=== PATIENT | female | born 1980 | race Caucasian/White ===

== ENCOUNTER 2018-12-18 15:50 | Inpatient (IN) | payer MEDICAID ==
[2018-12-18] MEDS ORDERED: Sodium Chloride 0.9% 1,000 ML IV ONE (16:14)
[2018-12-18 16:34] LABS: % EOSINOPHILS 1.5 % (0.0-5.0); % LYMPHOCYTES 7.8 % (20.0-50.0); % MONOCYTES 8.8 % (2.0-10.0); % NEUTROPHILS 81.9 % (40.0-80.0); EOSINOPHILE ABSOLUTE 0.2 Th/cmm (0.1-0.4); HEMATOCRIT 35.4 % (41.0-60); HEMOGLOBIN 11.8 gm/dL (12-16); LYMPHOCYTE ABSOLUTE 1.1 Th/cmm (1.5-3.0); MEAN CELL VOLUME 91.1 fl (81-100); MEAN CORPUSCULAR HEMOGLOBIN 30.2 pg (27.0-31.0); MEAN CORPUSCULAR HGB CONC 33.2 pg (28.0-36.0); MONOCYTE ABSOLUTE 1.2 Th/cmm (0.3-1.0); NEUTROPHILE ABSOLUTE 11.1 Th/cmm (1.8-8.0); PLATELET COUNT 396 Th/cmm (150-400); RED BLOOD COUNT 3.89 Mil/cmm (3.80-5.10); RED CELL DISTRIBUTION WIDTH 12.4 % (11.5-20.0); WHITE BLOOD COUNT 13.6 Th/cmm (4.8-10.8)
[2018-12-18 16:53] LABS: ALB/GLOB RATIO 1.3 (1.0-1.8); ALBUMIN 3.5 gm/dL (3.7-5.3); ALKALINE PHOSPHATASE 101 U/L (34-104); AMYLASE SERUM 39 U/L (29-103); BILIRUBIN,TOTAL 0.3 mg/dL (0.3-1.0); BUN - UREA NITROGEN 13 mg/dL (7-25); CALCIUM SERUM 8.6 mg/dL (8.6-10.3); CARBON DIOXIDE 23.8 mEq/L (21.0-31.0); CHLORIDE 103 mEq/L (98-107); CHOLESTEROL 101 mg/dL (<200); CREATININE - SERUM 0.7 mg/dL (0.6-1.2); CREATININE KINASE 22 U/L (30-223); GFR AFRICAN-AMERICAN > 60.0 ml/min (>90); GFR NON AFRICAN-AMERICAN > 60.0 ml/min; GLUCOSE 125 mg/dL (70-105); HDL -HIGH DENSITY LIPOPROTEIN 38 mg/dL (23-92); INR 1.05 (0.5-1.4); LIPASE 11 U/L (11-82); POTASSIUM SERUM 3.8 mEq/L (3.5-5.1); PROTHROMBIN TIME (TEST) 10.9 SECONDS (9.5-11.5); SGOT 24 U/L (13-39); SGPT/ALT 23 U/L (7-52); SODIUM SERUM 135 mEq/L (136-145); TOTAL PROTEIN,SERUM 6.2 gm/dL (6.0-8.3); TRIGLYCERIDES 82 mg/dL (<150)
[2018-12-18 17:07] LABS: URINE SOURCE CLEAN C
[2018-12-18 17:13] LABS: URINE BILIRUBIN NEGATIVE (NEGATIVE); URINE BLOOD MODERATE (NEGATIVE); URINE GLUCOSE (UA) NEGATIVE (NEGATIVE); URINE KETONE NEGATIVE (NEGATIVE); URINE LEUKOCYTE ESTERASE TRACE (NEGATIVE); URINE MICROSCOPIC INDICATED? YES; URINE NITRATE NEGATIVE (NEGATIVE); URINE PH 6.5 (4.6 - 8.0); URINE PROTEIN NEGATIVE (NEGATIVE); URINE UROBILINOGEN 0.2 E.U./dL (0.2 - 1.0)
[2018-12-18 17:17] LABS: URINE CLARITY HAZY (CLEAR); URINE COLOR YELLOW
[2018-12-18 17:22] LABS: URINE BACTERIA FEW /hpf (NONE SEEN); URINE EPITHELIAL CELLS MODERATE /lpf (FEW); URINE WBC 0-2 /hpf (0-5)
[2018-12-18] MEDS ORDERED: cefTRIAXone 1 GM in Sodium Chloride 0.9% 50 ML IV ONE (19:05)
--- NOTE | 2018-12-18 19:06 | ED Physician Chart ---
ED Chief Complaint/HPI - Patient Information Date Seen:: 12/18/18 Time Seen:: 16:30 Chief Complaint:: Abdominal Pain History of Present Illness:: onset x 2 days of intermittent, diffuse, crampy Abdominal Pain and fever; pt denies trauma, H/As, S/T, neck pain, cough, C/P, SOB, A/N/V/D/C, chills, or urinary s/s Allergies:: Allergies Allergy/AdvReac Type Severity Reaction Status Date / Time No Known Drug Allergies Allergy Verified 12/18/18 16:19 Vitals:: Vital Signs - 8 hr 12/18/18 16:25 Temp 100.0 F HR 112 RR 21 BP 107/68 O2 Sat % 98 Historian:: Patient, Family Member Review:: Nurse's Note Reviewed, Old Chart Reviewed <Arsen Schreiber - Last Filed: 12/18/18 19:06> - Patient Information Allergies:: Allergies Allergy/AdvReac Type Severity Reaction Status Date / Time No Known Drug Allergies Allergy Verified 12/18/18 16:19 Vitals:: Vital Signs - 8 hr 12/18/18 16:25 Temp 100.0 F HR 112 RR 21 BP 107/68 O2 Sat % 98 <Adan Quiroz - Last Filed: 12/19/18 10:22> ED Review of Systems - Review of Systems General/Constitutional: No fever, No chills, No weight loss, No weakness, No diaphoresis, No edema, No loss of appetite Skin: No skin lesions, No rash, No bruising Head: No headache, No light-headedness Eyes: No loss of vision, No pain, No diplopia ENT: No earache, No nasal drainage, No sore throat, No tinnitus Neck: No neck pain, No swelling, No thyromegaly, No stiffness, No mass noted Cardio Vascular: No chest pain, No palpitations, No PND, No orthopnea, No edema Pulmonary: No SOB, No cough, No sputum, No wheezing GI: No nausea, No vomiting, No diarrhea, Pain, No melena, No hematochezia, No constipation, No hematemesis G/U: No dysuria, No frequency, No hematuria, No nacturia [employer]: No vaginal discharge, No abnormal vaginal bleed, No contraction Musculoskeletal: No bone or joint pain, No back pain, No muscle pain Endocrine: No polyuria, No polydipsia Psychiatric: No prior psych history, No depression, No anxiety, No suicidal ideation, No homicidal ideation, No auditory hallucination, No visual hallucination Hematopoietic: No bruising, No lymphadenopathy Allergic/Immuno: No urticaria, No angioedema Neurological: No syncope, No focal symptoms, No weakness, No paresthesia, No headache, No seizure, No dizziness, No confusion, No vertigo <Arsen Schreiber - Last Filed: 12/18/18 19:06> ED Past Medical History - Past Medical History Obtainable: Yes Past Medical History: No significant medical hx Family History: None Social History: Non Smoker, No Alcohol, No Drug Use, Surgical History: None Psychiatricy History: None Medication: Reviewed <Arsen Schreiber Last Filed: 12/18/18 19:06> Family Medical History - Family Member Mother History Unknown: Yes <Arsen Schreiber Filed: 12/18/18 19:06> ED Physical Exam - Physical Examination General/Constitutional: Awake, Well-developed, well-nourished, Alert, No distress, GCS 15, Non-toxic appearing, Ambulatory Head: Atraumatic Eyes: Lids, conjuctiva normal, PERRL, EOMI Skin: Nl inspection, No rash, No skin lesions, No ecchymosis, Well hydrated, No lymphadenopathy ENMT: External ears, nose nl, TM canals nl, Nasal exam nl, Lips, teeth, gums nl , Oropharynx nl, Tonsils nl Neck: Nontender, Full ROM w/o pain, No JVD, No nuchal rigidity, No bruit, No mass, No stridor Respiratory: Nl effort/Exclusion, Clear to Auscultation, No Wheeze/Rhonchi/Rales Cardio Vascular: RRR, No murmur, gallop, rubs, NL S1 S2, Carotid/Femoral/Distal pulses equal bilaterally GI: No tenderness/rebounding/guarding, No organomegaly, No hernia, Normal BS's, Nondistended, No mass/bruits, No McBurney tenderness Other GI comments:: no pulsatile masses : No CVA tenderness Extremities: No tenderness or effusion, Full ROM, normal strength in all extremities, No edema, Normal digits & nails Neuro/Psych: Alert/oriented, DTR's symmetric, Normal sensory exam, Normal motor strength, Judgement/insight normal, Mood normal, Normal gait, No focal deficits Misc: Normal back, No paraspinal tenderness <Arsen Schreiber - Last Filed: 12/18/18 19:06> ED Labs/Radiology/EKG Results - Lab Results Results: Laboratory Tests 12/18/18 12/18/18 12/18/18 16:28 16:28 16:28 WBC 13.6 H RBC 3.89 Hgb 11.8 L Hct 35.4 L MCV 91.1 MCH 30.2 MCHC Differential 33.2 RDW 12.4 Plt Count 396 MPV 7.0 Neutrophils % 81.9 H Lymphocytes % 7.8 L Monocytes % 8.8 Eosinophils % 1.5 Basophils % 0.0 PT 10.9 INR 1.05 Sodium 135 L Potassium 3.8 Chloride 103 Carbon Dioxide 23.8 Anion Gap 12.0 BUN 13 Creatinine 0.7 Est GFR ( Amer) > 60.0 Est GFR (Non-Af Amer) > 60.0 BUN/Creatinine Ratio 18.6 Glucose 125 H Calcium 8.6 Total Bilirubin 0.3 AST 24 ALT 23 Alkaline Phosphatase 101 Creatine Kinase 22 L Troponin I B-Natriuretic Peptide Total Protein 6.2 Albumin 3.5 L Globulin 2.7 Albumin/Globulin Ratio 1.3 Triglycerides 82 Cholesterol 101 LDL Cholesterol Direct 53 L HDL Cholesterol 38 Amylase 39 Lipase 11 Serum , Qual Urine Source Urine Color Urine Clarity Urine pH Ur Specific [place] Urine Protein Urine Glucose (UA) Urine Ketones Urine Blood Urine Nitrate Urine Bilirubin Urine Urobilinogen Ur Leukocyte Esterase Urine RBC Urine WBC Ur Epithelial Cells Urine Bacteria 12/18/18 12/18/18 12/18/18 16:28 16:28 16:28 WBC RBC Hgb Hct MCV MCH MCHC Differential RDW Plt Count MPV Neutrophils % Lymphocytes % Monocytes % Eosinophils % Basophils % PT INR Sodium Potassium Chloride Carbon Dioxide Anion Gap BUN Creatinine Est GFR ( Amer) Est GFR (Non-Af Amer) BUN/Creatinine Ratio Glucose Calcium Total Bilirubin AST ALT Alkaline Phosphatase Creatine Kinase Troponin I < 0.01 L B-Natriuretic Peptide 7.3 Total Protein Albumin Globulin Albumin/Globulin Ratio Triglycerides Cholesterol LDL Cholesterol Direct HDL Cholesterol Amylase Lipase Serum , Qual NEGATIVE Urine Source Urine Color Urine Clarity Urine pH Ur Specific [place] Urine Protein Urine Glucose (UA) Urine Ketones Urine Blood Urine Nitrate Urine Bilirubin Urine Urobilinogen Ur Leukocyte Esterase Urine RBC Urine WBC Ur Epithelial Cells Urine Bacteria 12/18/18 16:29 WBC RBC Hgb Hct MCV MCH MCHC Differential RDW Plt Count MPV Neutrophils % Lymphocytes % Monocytes % Eosinophils % Basophils % PT INR Sodium Potassium Chloride Carbon Dioxide Anion Gap BUN Creatinine Est GFR ( Amer) Est GFR (Non-Af Amer) BUN/Creatinine Ratio Glucose Calcium Total Bilirubin AST ALT Alkaline Phosphatase Creatine Kinase Troponin I B-Natriuretic Peptide Total Protein Albumin Globulin Albumin/Globulin Ratio Triglycerides Cholesterol LDL Cholesterol Direct HDL Cholesterol Amylase Lipase Serum , Qual Urine Source CLEAN C Urine Color YELLOW Urine Clarity HAZY Urine pH 6.5 Ur Specific [place] 1.010 Urine Protein NEGATIVE Urine Glucose (UA) NEGATIVE Urine Ketones NEGATIVE Urine Blood MODERATE H Urine Nitrate NEGATIVE Urine Bilirubin NEGATIVE Urine Urobilinogen 0.2 Ur Leukocyte Esterase TRACE H Urine RBC 2-5 Urine WBC 0-2 Ur Epithelial Cells MODERATE Urine Bacteria FEW Comments:: Reviewed - EKG Interpretations EKG Time:: 16:19 Rate & Rhythm: 105; ST Comments:: LAE; non-specific st-t changes <Arsen Schreiber - Last Filed: 12/18/18 19:06> - Lab Results Results: Laboratory Tests 12/18/18 12/18/18 12/18/18 16:28 16:28 16:28 WBC 13.6 H RBC 3.89 Hgb 11.8 L Hct 35.4 L MCV 91.1 MCH 30.2 MCHC Differential 33.2 RDW 12.4 Plt Count 396 MPV 7.0 Neutrophils % 81.9 H Lymphocytes % 7.8 L Monocytes % 8.8 Eosinophils % 1.5 Basophils % 0.0 PT 10.9 INR 1.05 Sodium 135 L Potassium 3.8 Chloride 103 Carbon Dioxide 23.8 Anion Gap 12.0 BUN 13 Creatinine 0.7 Est GFR ( Amer) > 60.0 Est GFR (Non-Af Amer) > 60.0 BUN/Creatinine Ratio 18.6 Glucose 125 H Calcium 8.6 Total Bilirubin 0.3 AST 24 ALT 23 Alkaline Phosphatase 101 Creatine Kinase 22 L Troponin I B-Natriuretic Peptide Total Protein 6.2 Albumin 3.5 L Globulin 2.7 Albumin/Globulin Ratio 1.3 Triglycerides 82 Cholesterol 101 LDL Cholesterol Direct 53 L HDL Cholesterol 38 Amylase 39 Lipase 11 Serum , Qual Urine Source Urine Color Urine Clarity Urine pH Ur Specific [place] Urine Protein Urine Glucose (UA) Urine Ketones Urine Blood Urine Nitrate Urine Bilirubin Urine Urobilinogen Ur Leukocyte Esterase Urine RBC Urine WBC Ur Epithelial Cells Urine Bacteria 12/18/18 12/18/18 12/18/18 16:28 16:28 16:28 WBC RBC Hgb Hct MCV MCH MCHC Differential RDW Plt Count MPV Neutrophils % Lymphocytes % Monocytes % Eosinophils % Basophils % PT INR Sodium Potassium Chloride Carbon Dioxide Anion Gap BUN Creatinine Est GFR ( Amer) Est GFR (Non-Af Amer) BUN/Creatinine Ratio Glucose Calcium Total Bilirubin AST ALT Alkaline Phosphatase Creatine Kinase Troponin I < 0.01 L B-Natriuretic Peptide 7.3 Total Protein Albumin Globulin Albumin/Globulin Ratio Triglycerides Cholesterol LDL Cholesterol Direct HDL Cholesterol Amylase Lipase Serum , Qual NEGATIVE Urine Source Urine Color Urine Clarity Urine pH Ur Specific [place] Urine Protein Urine Glucose (UA) Urine Ketones Urine Blood Urine Nitrate Urine Bilirubin Urine Urobilinogen Ur Leukocyte Esterase Urine RBC Urine WBC Ur Epithelial Cells Urine Bacteria 12/18/18 16:29 WBC RBC Hgb Hct MCV MCH MCHC Differential RDW Plt Count MPV Neutrophils % Lymphocytes % Monocytes % Eosinophils % Basophils % PT INR Sodium Potassium Chloride Carbon Dioxide Anion Gap BUN Creatinine Est GFR ( Amer) Est GFR (Non-Af Amer) BUN/Creatinine Ratio Glucose Calcium Total Bilirubin AST ALT Alkaline Phosphatase Creatine Kinase Troponin I B-Natriuretic Peptide Total Protein Albumin Globulin Albumin/Globulin Ratio Triglycerides Cholesterol LDL Cholesterol Direct HDL Cholesterol Amylase Lipase Serum , Qual Urine Source CLEAN C Urine Color YELLOW Urine Clarity HAZY Urine pH 6.5 Ur Specific [place] 1.010 Urine Protein NEGATIVE Urine Glucose (UA) NEGATIVE Urine Ketones NEGATIVE Urine Blood MODERATE H Urine Nitrate NEGATIVE Urine Bilirubin NEGATIVE Urine Urobilinogen 0.2 Ur Leukocyte Esterase TRACE H Urine RBC 2-5 Urine WBC 0-2 Ur Epithelial Cells MODERATE Urine Bacteria FEW - Radiology Results Results: CT abdomen/pelvis wo contrast: areas of large bowel thickening which may be the underlying inflammatory colitis, gallstones, left hydronephrosis without stones. Prominent uterus. <Adan Quiroz - Last Filed: 12/19/18 10:22> ED Septic Shock - . Is Septic Shock (SBP<90, OR Lactate>4 mmol\L) present?: No - <6hrs of presentation: Vital Signs: Vital Signs - 8 hr 12/18/18 16:25 Temp 100.0 F HR 112 RR 21 BP 107/68 O2 Sat % 98 <Arsen Schreiber - Last Filed: 12/18/18 19:06> - . Is Septic Shock (SBP<90, OR Lactate>4 mmol\L) present?: No - <6hrs of presentation: Vital Signs: Vital Signs - 8 hr 12/18/18 16:25 Temp 100.0 F HR 112 RR 21 BP 107/68 O2 Sat % 98 <Adan Quiroz - Last Filed: 12/19/18 10:22> ED Reassessment (Disposition) - Reassessment Reassessment Condition:: Improved - Diagnosis Diagnosis:: Abdominal Pain; Fever; UTI; Tachycardia; Dehydration <Arsen Schreiber - Last Filed: 12/18/18 19:06> - Reassessment Reassessment:: Abdominal pain likely secondary to inflammatory colitis Urinary tract infection Leukocytosis Ordered tylenol 650mg PO, pantoprazole 40mg IV and flagyl 500mg IV Admit under Dr. Eason for further evaluation and management - Patient Disposition Discharge/Transfer:: Acute Care w/in this hosp Admitting Medical Physician:: Jairo Eason <Adan Quiroz - Last Filed: 12/19/18 10:22>
[2018-12-18] MEDS ORDERED: metroNIDAZOLE 500mg/NS 100mL 500 MG/100 ML BAG IV ONE ×2 (21:18→21:35)
[2018-12-18] MEDS ORDERED: Morphine Sulfate 4 mg/mL 1mL Syr IVP PRN (21:42)
[2018-12-18] MEDS: D5-0.9%NS 1,000 ML IV SCH (23:53)
[2018-12-19] MEDS: Levofloxacin 500mg/100mL 500 MG/100 ML BAG IV SCH ×2 (00:09→22:51)
[2018-12-19 06:48] VITALS: BP 93/51
[2018-12-19] MEDS: Lactobacillus Rhamnosus GG 15 Billion CFU CAP.SPRINK PO SCH (08:32)
[2018-12-19] MEDS: Pantoprazole 40 mg EC Tab PO SCH ×2 (08:32→16:42)
--- NOTE | 2018-12-19 10:13 | Diagnostic Imaging Report ---
CT abdomen and pelvis without intravenous contrast Indication: Abdominal pain, rule out appendicitis Comparison: None, Technique: Axial images were obtained from the lung bases to the bilateral proximal femurs without IV contrast. Coronal reconstructions were made. total DLP: [id number], CTDI8.4 FINDINGS: There is elevation of the right hemidiaphragm. Hypoventilatory and atelectatic changes of the lung bases are noted. Assessment of solid organs is limited by the contrast. No evidence of focal hepatic lesions. Gallstones are noted. No focal splenic lesions. No focal pancreatic lesions. There is mild to moderate left hydronephrosis. No obvious radiopaque stones identified. Distended urinary bladder is noted. Areas of large bowel wall thickening are noted. The appendix is not well visualized. No inflammatory changes right lower quadrant. Mildly prominent mesenteric and right lower quadrant lymph nodes are noted. No free fluid or free air. Osseous structures demonstrate no acute abnormalities. IMPRESSION: The appendix is not visualized, however, there are no secondary signs to suggest acute appendicitis. Please correlate clinically. Area of large bowel wall thickening which may be due to underlying infectious or inflammatory colitis. Clinical correlation is recommended. Mild to moderate left hydronephrosis. No radiopaque renal stones identified. There is distention of the urinary bladder. Clinical correlation is recommended Mild prominent mesenteric right lower quadrant lymph nodes possibly due to inflammatory process. Gallstones. Mildly prominent uterus.
[2018-12-19] MEDS: metroNIDAZOLE 500mg/NS 100mL 500 MG/100 ML BAG IV SCH ×2 (12:01→21:29)
--- NOTE | 2018-12-19 13:34 | History & Physical ---
ADMIT DATE: 12/19/2018 CHIEF COMPLAINT: Abdominal pain. HISTORY OF PRESENT ILLNESS: This is a 38-year-old female with a significant past medical history, recently diagnosed with UTI, admitted secondary to a diffuse abdominal pain. The patient was diagnosed with colitis and admitted for further management. PAST MEDICAL HISTORY: As mentioned in history of present illness. PAST SURGICAL HISTORY: Denies surgeries in the past. ALLERGIES: No known drug allergies. MEDICATIONS: Bactrim, Lactobacillus. FAMILY HISTORY: Denies diabetes or coronary artery disease. SOCIAL HISTORY: Nonsmoker, nondrinker, , without any children. REVIEW OF SYSTEMS: GENERAL: Complains not feeling well. HEAD, EYES, EARS, NOSE, AND THROAT: No blurred vision or pain. LUNGS: Negative for COPD or asthma. HEART: The patient had hypertension. ABDOMEN: As mentioned above. NEUROLOGIC: No headache, seizure or syncope. PSYCHIATRIC: The patient denies. PHYSICAL EXAMINATION: VITAL SIGNS: Blood pressure 90/50, respirations 18, pulse 94, temperature 97.3. GENERAL: A middle-aged female in no acute distress. NECK: Supple. No mass. LUNGS: Equal breath sounds, otherwise clear to auscultation. HEART: Regular rate and rhythm without appreciable murmur. ABDOMEN: Soft, nontender. EXTREMITIES: No clubbing, cyanosis or edema. LABORATORY DATA: WBC 13, hemoglobin 11, platelets 296. Sodium 135, potassium 3.8, BUN 13, creatinine 0.7, blood sugar 125. UA trace leukocyte. ASSESSMENT AND PLAN: 1. Abdominal pain. 2. Recent UTI, colitis, leukocytosis, anemia, hyponatremia, diarrhea. We will provide the patient with IV hydration, IV antibiotic. We will place the patient on GI. CT showed findings. 3. Colitis. Continue with current care. We will follow the patient closely. JOB# [id number]
[2018-12-19] MEDS: D5-0.9%NS 1,000 ML IV SCH (13:50)
--- NOTE | 2018-12-19 15:09 | Consultation ---
DATE OF CONSULTATION: 12/19/2018 REQUESTING PHYSICIAN: Dr. Jairo Eason. REASON FOR CONSULTATION: Abdominal pain and diarrhea. Thank you, Dr. Eason, for asking us to see this patient in consultation. HISTORY OF PRESENT ILLNESS: This is a 38-year-old female with no significant past medical history who presents to the hospital with ongoing diffuse abdominal pain, cramping and profuse diarrhea with blood in it. The patient states that she has had issues with cramping pain and bloody diarrhea in the past; however, has never had any proper workup for this either. The patient states that since Monday she was vomiting and she was having ongoing profuse diarrhea. She saw some kind of a primary provider earlier in the week who prescribed her Bactrim and probiotic; however, this had not helped. The patient presented to the hospital and had a CT of the abdomen and pelvis performed, which showed area of large bowel wall thickening that was skipped and not one particular area of focus. Thus far, stool studies have not been performed. PAST MEDICAL HISTORY: None. MEDICATIONS: Have been reviewed. SOCIAL HISTORY: Denies any tobacco, alcohol or drugs. FAMILY HISTORY: Noncontributory for GI disease. REVIEW OF SYSTEMS: Positive for abdominal pain, cramping, nausea, vomiting, diarrhea, blood in the stool, blood in the urine. All of the 12-point systems are negative. PHYSICAL EXAMINATION: VITAL SIGNS: Temperature of 98.8, T-max of 100.1, blood pressure is 95-105/51-52 and satting 98% on room air. GENERAL: She looks mildly uncomfortable. HEENT: Normocephalic and atraumatic. PERRL positive. LUNGS: Clear bilaterally. No wheezes, rales or rhonchi. HEART: Regular rate and rhythm, normal S1 and S2. ABDOMEN: Soft, tender to palpation in the epigastric region as well as left upper quadrant region. No rebound tenderness. EXTREMITIES: She has no lower extremity edema. PSYCHOLOGICAL: Alert and oriented x 3. NEUROLOGIC: Grossly intact. LABORATORY DATA: White count of 13,000, hemoglobin of 11.8 and platelet count 396,000. INR 1.05. Sodium 135, potassium 3.8. She has moderate amount of blood in her urine as well. INR 1.05. Sodium 135. IMAGING: As reviewed in HPI. ASSESSMENT AND PLAN: This is a 38-year-old female who presents with acute intractable abdominal pain, nausea, vomiting and diarrhea with abnormal findings on CT scan. 1. Intractable abdominal pain. 2. Intractable diarrhea with evidence of colitis on CT scan. 3. Concern for infectious versus inflammatory bowel disease. 4. Systemic inflammatory response syndrome and sepsis. Would recommend coverage with broad spectrum antibiotics with combination of Levaquin and Flagyl and look for stool studies as most likely diagnosis in this acute setting could be infectious. However, more interestingly, the patient is telling me that she has had recurrent episodes of this type of symptoms, which makes inflammatory bowel disease certainly very much possibility. We will recommend stool studies, ruling out C. diff and will perform an endoscopy and colonoscopy for further evaluation with biopsies tomorrow. In the meantime, we will also recommend getting inflammatory markers, IBD serologies as well as part of her workup. Clear liquid diet is okay. We will order prep and recommend endoscopy and colonoscopy tomorrow with anesthesia. Thank you for allowing us to participate in this patient's care. [facility]# [id number]
[2018-12-20] MEDS: metroNIDAZOLE 500mg/NS 100mL 500 MG/100 ML BAG IV SCH ×3 (05:07→21:21)
[2018-12-20] MEDS: D5-0.9%NS 1,000 ML IV SCH (05:08)
[2018-12-20 06:43] LABS: % BASOPHILS 0.3 % (0.0-2.0); % EOSINOPHILS 2.7 % (0.0-5.0); % LYMPHOCYTES 10.5 % (20.0-50.0); % MONOCYTES 12.6 % (2.0-10.0); % NEUTROPHILS 73.9 % (40.0-80.0); EOSINOPHILE ABSOLUTE 0.3 Th/cmm (0.1-0.4); HEMATOCRIT 35.1 % (41.0-60); HEMOGLOBIN 11.7 gm/dL (12-16); LYMPHOCYTE ABSOLUTE 1.1 Th/cmm (1.5-3.0); MEAN CELL VOLUME 90.9 fl (81-100); MEAN CORPUSCULAR HEMOGLOBIN 30.3 pg (27.0-31.0); MEAN CORPUSCULAR HGB CONC 33.3 pg (28.0-36.0); MEAN PLATELET VOLUME 7.1 fl; MONOCYTE ABSOLUTE 1.3 Th/cmm (0.3-1.0); NEUTROPHILE ABSOLUTE 7.5 Th/cmm (1.8-8.0); PLATELET COUNT 462 Th/cmm (150-400); RED BLOOD COUNT 3.86 Mil/cmm (3.80-5.10); RED CELL DISTRIBUTION WIDTH 12.3 % (11.5-20.0); WHITE BLOOD COUNT 10.2 Th/cmm (4.8-10.8)
[2018-12-20 07:05] LABS: INR 1.04 (0.5-1.4); PROTHROMBIN TIME (TEST) 10.8 SECONDS (9.5-11.5)
[2018-12-20 07:10] LABS: ALB/GLOB RATIO 1.2 (1.0-1.8); ALBUMIN 3.6 gm/dL (3.7-5.3); ALKALINE PHOSPHATASE 111 U/L (34-104); ANION GAP 12.8 (7.0-16.0); BILIRUBIN,TOTAL 0.3 mg/dL (0.3-1.0); BUN - UREA NITROGEN 5 mg/dL (7-25); CALCIUM SERUM 8.6 mg/dL (8.6-10.3); CARBON DIOXIDE 24.5 mEq/L (21.0-31.0); CHLORIDE 105 mEq/L (98-107); CREATININE - SERUM 0.6 mg/dL (0.6-1.2); GFR AFRICAN-AMERICAN > 60.0 ml/min (>90); GFR NON AFRICAN-AMERICAN > 60.0 ml/min; GLUCOSE 120 mg/dL (70-105); MAGNESIUM 2.2 mg/dL (1.9-2.7); POTASSIUM SERUM 3.3 mEq/L (3.5-5.1); SGOT 28 U/L (13-39); SGPT/ALT 28 U/L (7-52); SODIUM SERUM 139 mEq/L (136-145); TOTAL PROTEIN,SERUM 6.7 gm/dL (6.0-8.3)
[2018-12-20] MEDS: Lactobacillus Rhamnosus GG 15 Billion CFU CAP.SPRINK PO SCH (08:50)
[2018-12-20] MEDS: Pantoprazole 40 mg EC Tab PO SCH ×2 (08:50→17:18)
--- NOTE | 2018-12-20 14:59 | Internal Medicine Prog Note ---
Internal Medicine Subjective - Subjective Patient seen and examined:: with staff, chart reviewed Patient is:: awake, verbal, interactive, ambulating Patient Complaints of:: diarrhea, pain with urination, unable to sleep Per staff patient has:: no adverse event, no episodes of fall, tolerating meds Internal Medicine Objective - Results Result Diagrams: 12/20/18 05:30 12/20/18 05:30 Recent Labs: Laboratory Last Values WBC 10.2 Th/cmm (4.8-10.8) 12/20/18 05:30 RBC 3.86 Mil/cmm (3.80-5.10) 12/20/18 05:30 Hgb 11.7 gm/dL (12-16) L 12/20/18 05:30 Hct 35.1 % (41.0-60) L 12/20/18 05:30 MCV 90.9 fl (81-100) 12/20/18 05:30 MCH 30.3 pg (27.0-31.0) 12/20/18 05:30 MCHC Differential 33.3 pg (28.0-36.0) 12/20/18 05:30 RDW 12.3 % (11.5-20.0) 12/20/18 05:30 Plt Count 462 Th/cmm (150-400) H 12/20/18 05:30 MPV 7.1 fl 12/20/18 05:30 Neutrophils % 73.9 % (40.0-80.0) 12/20/18 05:30 Lymphocytes % 10.5 % (20.0-50.0) L 12/20/18 05:30 Monocytes % 12.6 % (2.0-10.0) H 12/20/18 05:30 Eosinophils % 2.7 % (0.0-5.0) 12/20/18 05:30 Basophils % 0.3 % (0.0-2.0) 12/20/18 05:30 PT 10.8 SECONDS (9.5-11.5) 12/20/18 05:30 INR 1.04 (0.5-1.4) 12/20/18 05:30 Sodium 139 mEq/L (136-145) 12/20/18 05:30 Potassium 3.3 mEq/L (3.5-5.1) L 12/20/18 05:30 Chloride 105 mEq/L (98-107) 12/20/18 05:30 Carbon Dioxide 24.5 mEq/L (21.0-31.0) 12/20/18 05:30 Anion Gap 12.8 (7.0-16.0) 12/20/18 05:30 BUN 5 mg/dL (7-25) L 12/20/18 05:30 Creatinine 0.6 mg/dL (0.6-1.2) 12/20/18 05:30 Est GFR ( Amer) > 60.0 ml/min (>90) 12/20/18 05:30 Est GFR (Non-Af Amer) > 60.0 ml/min 12/20/18 05:30 BUN/Creatinine Ratio 8.3 12/20/18 05:30 Glucose 120 mg/dL (70-105) H 12/20/18 05:30 Calcium 8.6 mg/dL (8.6-10.3) 12/20/18 05:30 Magnesium 2.2 mg/dL (1.9-2.7) 12/20/18 05:30 Total Bilirubin 0.3 mg/dL (0.3-1.0) 12/20/18 05:30 AST 28 U/L (13-39) 12/20/18 05:30 ALT 28 U/L (7-52) 12/20/18 05:30 Alkaline Phosphatase 111 U/L (34-104) H 12/20/18 05:30 Creatine Kinase 22 U/L (30-223) L 12/18/18 16:28 Troponin I < 0.01 ng/mL (0.01-0.05) L 12/18/18 16:28 C-Reactive Protein 24.2 mg/dL (0.0-0.9) H 12/19/18 16:28 B-Natriuretic Peptide 7.3 pg/mL (5.0-100.0) 12/18/18 16:28 Total Protein 6.7 gm/dL (6.0-8.3) 12/20/18 05:30 Albumin 3.6 gm/dL (3.7-5.3) L 12/20/18 05:30 Globulin 3.1 gm/dL 12/20/18 05:30 Albumin/Globulin Ratio 1.2 (1.0-1.8) 12/20/18 05:30 Triglycerides 82 mg/dL (<150) 12/18/18 16:28 Cholesterol 101 mg/dL (<200) 12/18/18 16:28 LDL Cholesterol Direct 53 mg/dL (75-193) L 12/18/18 16:28 HDL Cholesterol 38 mg/dL (23-92) 12/18/18 16:28 Amylase 39 U/L (29-103) 12/18/18 16:28 Lipase 11 U/L (11-82) 12/18/18 16:28 Serum , Qual NEGATIVE (NEGATIVE) 12/18/18 16:28 Urine Source CLEAN C 12/18/18 16:29 Urine Color YELLOW 12/18/18 16:29 Urine Clarity HAZY (CLEAR) 12/18/18 16:29 Urine pH 6.5 (4.6 - 8.0) 12/18/18 16:29 Ur Specific [place] 1.010 (1.005-1.030) 12/18/18 16:29 Urine Protein NEGATIVE mg/dL (NEGATIVE) 12/18/18 16:29 Urine Glucose (UA) NEGATIVE mg/dL (NEGATIVE) 12/18/18 16:29 Urine Ketones NEGATIVE mg/dL (NEGATIVE) 12/18/18 16:29 Urine Blood MODERATE (NEGATIVE) H 12/18/18 16:29 Urine Nitrate NEGATIVE (NEGATIVE) 12/18/18 16:29 Urine Bilirubin NEGATIVE (NEGATIVE) 12/18/18 16:29 Urine Urobilinogen 0.2 E.U./dL (0.2 - 1.0) 12/18/18 16:29 Ur Leukocyte Esterase TRACE (NEGATIVE) H 12/18/18 16:29 Urine RBC 2-5 /hpf (0-5) 12/18/18 16:29 Urine WBC 0-2 /hpf (0-5) 12/18/18 16:29 Ur Epithelial Cells MODERATE /lpf (FEW) 12/18/18 16:29 Urine Bacteria FEW /hpf (NONE SEEN) 12/18/18 16:29 Urine Test NEGATIVE 12/19/18 08:00 - Physical Exam Vitals and I&O: Vital Signs Temp 98.9 F 12/20/18 12:00 Pulse 82 12/20/18 12:00 Resp 18 12/20/18 12:00 BP 105/64 12/20/18 12:00 Pulse Ox 95 12/20/18 12:00 Intake & Output 12/19/18 12/20/18 12/20/18 18:59 06:59 18:59 Intake Total 1100 3700 Output Total 2 Balance 1100 3700 -2 Weight (lbs) 51.71 kg 51.71 kg Intake: Intake, IV Amount 1100 1200 D5-0.9%Ns 1,000 ml @ 100 1000 1000 mls/hr IV .Q10H [facility] Rx#: [id number] metroNIDAZOLE 500mg/NS 100 200 100mL 500 mg In 100 ml @ 100 mls/hr IV Q8HR [facility] Rx #:[id number] Oral 2500 Output: Stool 2 Other: # Voids 5 # Bowel Movements 6 Stool Characteristics Liquid Liquid Liquid Brown Brown Weight Source Bedscale Bedscale Active Medications: Current Medications Acetaminophen (Tylenol) 650 mg PO Q4H PRN PRN Reason: Pain Or Fever above 101 Stop: 02/16/19 21:41 Last Admin: 12/19/18 12:01 Dose: 650 mg Levofloxacin (Levaquin Pb) 500 mg in 100 mls @ 100 mls/hr IV Q24HR [facility] Stop: 02/16/19 21:59 Last Admin: 12/19/18 22:51 Dose: 100 mls/hr Metronidazole (Flagyl) 500 mg in 100 mls @ 100 mls/hr IV Q8HR [facility] Stop: 02/17/19 12:59 Last Admin: 12/20/18 11:55 Dose: 100 mls/hr Dextrose/Sodium Chloride (D5-0.9%Ns) 1,000 mls @ 70 mls/hr IV .[id number] [facility] Stop: 02/18/19 14:59 Lactobacillus Rhamnosus (Culturelle 15b) 1 each PO DAILY [facility] Stop: 02/17/19 08:59 Last Admin: 12/20/18 08:50 Dose: Not Given Loperamide HCl (Imodium) 4 mg PO Q4HR PRN PRN Reason: Diarrhea Stop: 02/17/19 12:34 Morphine Sulfate (Morphine) 2 mg IVP Q4H PRN PRN Reason: Abdominal Pain Stop: 02/16/19 21:41 Last Admin: 12/19/18 01:13 Dose: 2 mg Ondansetron HCl (Zofran) 4 mg IV Q8H PRN PRN Reason: Nausea / Vomiting Stop: 02/16/19 21:41 Pantoprazole Sodium (Protonix) 40 mg PO BID [facility] Stop: 02/17/19 08:59 Last Admin: 12/20/18 08:50 Dose: Not Given General: weak, alert HEENT: NC/AT, PERRLA Neck: Supple, No JVD Lungs: CTAB Cardiovascular: RRR, Normal S1, Normal S2, without murmur Abdomen: soft, tender Extremities: excoriation Neurological: no change Internal Medicine Assmt/Plan - Assessment Assessment: ASSESSMENT AND PLAN: 1. Abdominal pain. 2. Recent UTI, colitis, leukocytosis, anemia, hyponatremia, diarrhea. - Plan Plan: PLAN: We will provide the patient with IV hydration, IV antibiotic. We will place the patient on GI. CT showed findings Colitis. Continue with current care. We will follow the patient closely.
[2018-12-20] MEDS ORDERED: Potassium Chloride 20 mEq ER Tab PO ONE (15:00)
--- NOTE | 2018-12-20 16:36 | Operative Report ---
DATE OF SURGERY: 12/20/2018 PROCEDURES PERFORMED: 1. EGD with biopsy. 2. Complete colonoscopy and ileoscopy with biopsies. PREOPERATIVE DIAGNOSIS: 1. Concern for colitis. 2. Intractable abdominal pain and bloody diarrhea. POSTOPERATIVE DIAGNOSES: 1. [id number] Crohn's colitis versus ulcerative colitis, favor Crohn's. 2. Erosive gastritis, status post biopsies. HISTORY OF PRESENT ILLNESS: This is a 38-year-old female who presented with acute intractable abdominal pain, nausea, and diarrhea with blood in her stools. She has had recurrent episodes of these episodes; however, this one in particular presented acutely last week. Thus far, stool studies have been ordered; however, given the recurrence and chronicity of her symptoms, an endoscopy and colonoscopy was chosen for further evaluation to rule out inflammatory bowel disease. SEDATION: Per anesthesia. CONSENT: Informed consent was obtained from the patient after explaining the risks, benefits, and alternatives to the procedure, which were understood and so stated. EGD: While the patient was in a left lateral decubitus position, a GIF-H180 scope was introduced through the patient's mouth and advanced under direct visualization into the esophagus, into the stomach, and up to the second and third portion of the duodenum. Here, the scope was withdrawn carefully examining the color, texture, and anatomy of the mucosa. The D1 and D2 portions appeared normal. Biopsies were obtained in the duodenum. The scope was then brought back to the gastric body where retroflexion was performed, which was normal. The scope was then straightened forward and further attention was then paid to the gastric antrum. Here in the gastric antrum, there were several small gastric erosions and gastritis that was seen here. Multiple biopsies were obtained in the gastric antrum to rule out any disease as well as a ZEINAB test to rule out any H. pylori presence. The scope was then brought back to the GE junction, which was present at 35 cm from the incisors. There was no presence of any esophagitis. The scope was withdrawn out and the patient tolerated this procedure well. Colonoscopy: While the patient was in the left lateral decubitus position, a rectal exam was performed, which was normal. Following this, a pediatric colonoscope that was well lubricated was advanced into the anal canal into the rectum and then, advanced slowly to the cecum. The cecum was identified by the ileocecal valve and the appendiceal orifice. Upon entry through the colon, though there was evidence that the patient had pancolitis. The presence of colitis was worse on the right side than it was even on the left side; however, it involved the entire colon including the rectum. The scope was gently advanced into the terminal ileum, which looked grossly normal; however, there were 1 or 2 very small minute ulcers in the terminal ileum that were biopsied to rule out any Crohn's involvement. Endoscopically, this did appear like a Crohn's colitis to me; however, we are obtaining cultures to rule out any infectious etiology for this. Biopsies were obtained in the right colon and labeled as right colon. The scope was then drawn back from the ascending to the transverse to the descending colon. Again, the colitis appeared relatively more of like a Xiao score 1-2 in the left colon, however, was more of like a Xiao 3 in the right colon, especially around the ascending colon area. Biopsies were obtained of the left colon. The scope was brought back to the descending colon through the sigmoid down to the rectum where retroflexion was performed, which showed mild proctitis. Biopsies were obtained in the rectum. The scope was withdrawn. The patient tolerated this procedure well. RECOMMENDATIONS: 1. We will await for all stool studies results as well as biopsies. However, I would empirically start this patient on some steroids if C. diff is negative. 2. If indeed this is IBD, which is most likely is, she should probably be started on biological therapy given the degree of involvement. 3. She can follow up in GI office if and when she feels better to start medical therapy. In the meantime, would recommend getting a QuantiFERON gold and TPMT level in anticipation that she will likely need biological therapy. Thank you for allowing me to participate in this patient's care. JOB# [id number]
[2018-12-20] MEDS: Levofloxacin 500mg/100mL 500 MG/100 ML BAG IV SCH (21:26)
[2018-12-21] MEDS: metroNIDAZOLE 500mg/NS 100mL 500 MG/100 ML BAG IV SCH ×3 (05:23→21:54)
[2018-12-21 06:18] LABS: % BASOPHILS 0.2 % (0.0-2.0); % EOSINOPHILS 2.3 % (0.0-5.0); % MONOCYTES 12.9 % (2.0-10.0); % NEUTROPHILS 73.6 % (40.0-80.0); EOSINOPHILE ABSOLUTE 0.2 Th/cmm (0.1-0.4); HEMATOCRIT 33.2 % (41.0-60); HEMOGLOBIN 11.2 gm/dL (12-16); LYMPHOCYTE ABSOLUTE 1.1 Th/cmm (1.5-3.0); MEAN CELL VOLUME 89.6 fl (81-100); MEAN CORPUSCULAR HEMOGLOBIN 30.3 pg (27.0-31.0); MEAN CORPUSCULAR HGB CONC 33.8 pg (28.0-36.0); MEAN PLATELET VOLUME 7.1 fl; MONOCYTE ABSOLUTE 1.3 Th/cmm (0.3-1.0); NEUTROPHILE ABSOLUTE 7.2 Th/cmm (1.8-8.0); PLATELET COUNT 463 Th/cmm (150-400); RED BLOOD COUNT 3.71 Mil/cmm (3.80-5.10); RED CELL DISTRIBUTION WIDTH 12.4 % (11.5-20.0); WHITE BLOOD COUNT 9.8 Th/cmm (4.8-10.8)
[2018-12-21 06:40] LABS: ALB/GLOB RATIO 1.2 (1.0-1.8); ALBUMIN 3.1 gm/dL (3.7-5.3); ALKALINE PHOSPHATASE 89 U/L (34-104); ANION GAP 11.4 (7.0-16.0); BILIRUBIN,TOTAL 0.3 mg/dL (0.3-1.0); BUN - UREA NITROGEN 4 mg/dL (7-25); CALCIUM SERUM 8.2 mg/dL (8.6-10.3); CHLORIDE 104 mEq/L (98-107); CREATININE - SERUM 0.5 mg/dL (0.6-1.2); GFR AFRICAN-AMERICAN > 60.0 ml/min (>90); GFR NON AFRICAN-AMERICAN > 60.0 ml/min; GLUCOSE 110 mg/dL (70-105); POTASSIUM SERUM 3.4 mEq/L (3.5-5.1); SGOT 23 U/L (13-39); SGPT/ALT 24 U/L (7-52); SODIUM SERUM 136 mEq/L (136-145); TOTAL PROTEIN,SERUM 5.7 gm/dL (6.0-8.3)
--- NOTE | 2018-12-21 07:47 | GI Progress Note ---
Subjective - Review of Systems Subjective: STILL HAS ABD PAIN, DIARRHEA WITH SOME BLOOD Objective - Results Result Diagrams: 12/21/18 05:10 12/21/18 05:10 Recent Labs: Laboratory Last Values WBC 9.8 Th/cmm (4.8-10.8) 12/21/18 05:10 RBC 3.71 Mil/cmm (3.80-5.10) L 12/21/18 05:10 Hgb 11.2 gm/dL (12-16) L 12/21/18 05:10 Hct 33.2 % (41.0-60) L 12/21/18 05:10 MCV 89.6 fl (81-100) 12/21/18 05:10 MCH 30.3 pg (27.0-31.0) 12/21/18 05:10 MCHC Differential 33.8 pg (28.0-36.0) 12/21/18 05:10 RDW 12.4 % (11.5-20.0) 12/21/18 05:10 Plt Count 463 Th/cmm (150-400) H 12/21/18 05:10 MPV 7.1 fl 12/21/18 05:10 Neutrophils % 73.6 % (40.0-80.0) 12/21/18 05:10 Lymphocytes % 11.0 % (20.0-50.0) L 12/21/18 05:10 Monocytes % 12.9 % (2.0-10.0) H 12/21/18 05:10 Eosinophils % 2.3 % (0.0-5.0) 12/21/18 05:10 Basophils % 0.2 % (0.0-2.0) 12/21/18 05:10 PT 10.8 SECONDS (9.5-11.5) 12/20/18 05:30 INR 1.04 (0.5-1.4) 12/20/18 05:30 Sodium 136 mEq/L (136-145) 12/21/18 05:10 Potassium 3.4 mEq/L (3.5-5.1) L 12/21/18 05:10 Chloride 104 mEq/L (98-107) 12/21/18 05:10 Carbon Dioxide 24.0 mEq/L (21.0-31.0) 12/21/18 05:10 Anion Gap 11.4 (7.0-16.0) 12/21/18 05:10 BUN 4 mg/dL (7-25) L 12/21/18 05:10 Creatinine 0.5 mg/dL (0.6-1.2) L 12/21/18 05:10 Est GFR ( Amer) > 60.0 ml/min (>90) 12/21/18 05:10 Est GFR (Non-Af Amer) > 60.0 ml/min 12/21/18 05:10 BUN/Creatinine Ratio 8.0 12/21/18 05:10 Glucose 110 mg/dL (70-105) H 12/21/18 05:10 Calcium 8.2 mg/dL (8.6-10.3) L 12/21/18 05:10 Magnesium 2.2 mg/dL (1.9-2.7) 12/20/18 05:30 Total Bilirubin 0.3 mg/dL (0.3-1.0) 12/21/18 05:10 AST 23 U/L (13-39) 12/21/18 05:10 ALT 24 U/L (7-52) 12/21/18 05:10 Alkaline Phosphatase 89 U/L (34-104) 12/21/18 05:10 Creatine Kinase 22 U/L (30-223) L 12/18/18 16:28 Troponin I < 0.01 ng/mL (0.01-0.05) L 12/18/18 16:28 C-Reactive Protein 24.2 mg/dL (0.0-0.9) H 12/19/18 16:28 B-Natriuretic Peptide 7.3 pg/mL (5.0-100.0) 12/18/18 16:28 Total Protein 5.7 gm/dL (6.0-8.3) L 12/21/18 05:10 Albumin 3.1 gm/dL (3.7-5.3) L 12/21/18 05:10 Globulin 2.6 gm/dL 12/21/18 05:10 Albumin/Globulin Ratio 1.2 (1.0-1.8) 12/21/18 05:10 Triglycerides 82 mg/dL (<150) 12/18/18 16:28 Cholesterol 101 mg/dL (<200) 12/18/18 16:28 LDL Cholesterol Direct 53 mg/dL (75-193) L 12/18/18 16:28 HDL Cholesterol 38 mg/dL (23-92) 12/18/18 16:28 Amylase 39 U/L (29-103) 12/18/18 16:28 Lipase 11 U/L (11-82) 12/18/18 16:28 Serum , Qual NEGATIVE (NEGATIVE) 12/18/18 16:28 Urine Source CLEAN C 12/18/18 16:29 Urine Color YELLOW 12/18/18 16:29 Urine Clarity HAZY (CLEAR) 12/18/18 16:29 Urine pH 6.5 (4.6 - 8.0) 12/18/18 16:29 Ur Specific [place] 1.010 (1.005-1.030) 12/18/18 16:29 Urine Protein NEGATIVE mg/dL (NEGATIVE) 12/18/18 16:29 Urine Glucose (UA) NEGATIVE mg/dL (NEGATIVE) 12/18/18 16:29 Urine Ketones NEGATIVE mg/dL (NEGATIVE) 12/18/18 16:29 Urine Blood MODERATE (NEGATIVE) H 12/18/18 16:29 Urine Nitrate NEGATIVE (NEGATIVE) 12/18/18 16:29 Urine Bilirubin NEGATIVE (NEGATIVE) 12/18/18 16:29 Urine Urobilinogen 0.2 E.U./dL (0.2 - 1.0) 12/18/18 16:29 Ur Leukocyte Esterase TRACE (NEGATIVE) H 12/18/18 16:29 Urine RBC 2-5 /hpf (0-5) 12/18/18 16:29 Urine WBC 0-2 /hpf (0-5) 12/18/18 16:29 Ur Epithelial Cells MODERATE /lpf (FEW) 12/18/18 16:29 Urine Bacteria FEW /hpf (NONE SEEN) 12/18/18 16:29 Urine Test NEGATIVE 12/19/18 08:00 - Physical Exam Vitals and I&O: Vital Signs Temp 98.8 F 12/21/18 04:00 Pulse 99 12/21/18 04:00 Resp 18 12/21/18 04:00 BP 105/53 12/21/18 04:00 Pulse Ox 98 12/21/18 04:00 Intake & Output 12/20/18 12/21/18 12/21/18 18:59 06:59 18:59 Intake Total 400 100 Output Total 2 Balance 398 100 Weight (lbs) 51.71 kg 51.71 kg Intake: Intake, IV Amount 100 100 metroNIDAZOLE 500mg/NS 100 100 100mL 500 mg In 100 ml @ 100 mls/hr IV Q8HR [facility] Rx #:[id number] Oral 300 Output: Stool 2 Other: # Voids 3 4 # Bowel Movements 3 Stool Characteristics Liquid Liquid Weight Source Bedscale Bedscale Active Medications: Current Medications Acetaminophen (Tylenol) 650 mg PO Q4H PRN PRN Reason: Pain Or Fever above 101 Stop: 02/16/19 21:41 Last Admin: 12/21/18 05:35 Dose: 650 mg Levofloxacin (Levaquin Pb) 500 mg in 100 mls @ 100 mls/hr IV Q24HR [facility] Stop: 02/16/19 21:59 Last Admin: 12/20/18 21:26 Dose: 100 mls/hr Metronidazole (Flagyl) 500 mg in 100 mls @ 100 mls/hr IV Q8HR [facility] Stop: 02/17/19 12:59 Last Admin: 12/21/18 05:23 Dose: 100 mls/hr Dextrose/Sodium Chloride (D5-0.9%Ns) 1,000 mls @ 70 mls/hr IV .[id number] [facility] Stop: 02/18/19 14:59 Lactobacillus Rhamnosus (Culturelle 15b) 1 each PO DAILY [facility] Stop: 02/17/19 08:59 Last Admin: 12/20/18 08:50 Dose: Not Given Loperamide HCl (Imodium) 4 mg PO Q4HR PRN PRN Reason: Diarrhea Stop: 02/17/19 12:34 Morphine Sulfate (Morphine) 2 mg IVP Q4H PRN PRN Reason: Abdominal Pain Stop: 02/16/19 21:41 Last Admin: 12/19/18 01:13 Dose: 2 mg Ondansetron HCl (Zofran) 4 mg IV Q8H PRN PRN Reason: Nausea / Vomiting Stop: 02/16/19 21:41 Pantoprazole Sodium (Protonix) 40 mg PO BID [facility] Stop: 02/17/19 08:59 Last Admin: 12/20/18 17:18 Dose: 40 mg Assessment/Plan - Problem List Patient Problems: All Active Problems ABDOMINAL PAIN (Acute) Abdominal pain (Acute) R10.9 Flu-like symptoms (Acute) R68.89 - Assessment Assessment: 38 YO FEMALE WITH COLITIS SUSPECT INFLAMMATORY BOWEL DISEASE EGD SHOWED GASTRITIS CT SHOWED COLITIS AND GALLSTONES THE GALLSTONES DO NOT SEEM SYMPTOMATIC AND THE LFTS ARE NORMAL STOOL TEST NEG THUS FAR (CDIFF NEG) 1.CONT LEVAQUIN AND FLAGYL 2.START SOLUMEDROL 3.CONT SUPP CARE
[2018-12-21] MEDS: Pantoprazole 40 mg EC Tab PO SCH ×2 (08:59→16:25)
[2018-12-21] MEDS: Lactobacillus Rhamnosus GG 15 Billion CFU CAP.SPRINK PO SCH (08:59)
[2018-12-21] MEDS ORDERED: Potassium Chloride 20 mEq ER Tab PO ONE (12:14)
--- NOTE | 2018-12-21 12:15 | Internal Medicine Prog Note ---
Internal Medicine Subjective - Subjective Patient seen and examined:: with staff, chart reviewed Patient is:: awake, verbal, interactive, ambulating Patient Complaints of:: diarrhea, pain with urination, unable to sleep Per staff patient has:: no adverse event, no episodes of fall, tolerating meds Internal Medicine Objective - Results Result Diagrams: 12/21/18 05:10 12/21/18 05:10 Recent Labs: Laboratory Last Values WBC 9.8 Th/cmm (4.8-10.8) 12/21/18 05:10 RBC 3.71 Mil/cmm (3.80-5.10) L 12/21/18 05:10 Hgb 11.2 gm/dL (12-16) L 12/21/18 05:10 Hct 33.2 % (41.0-60) L 12/21/18 05:10 MCV 89.6 fl (81-100) 12/21/18 05:10 MCH 30.3 pg (27.0-31.0) 12/21/18 05:10 MCHC Differential 33.8 pg (28.0-36.0) 12/21/18 05:10 RDW 12.4 % (11.5-20.0) 12/21/18 05:10 Plt Count 463 Th/cmm (150-400) H 12/21/18 05:10 MPV 7.1 fl 12/21/18 05:10 Neutrophils % 73.6 % (40.0-80.0) 12/21/18 05:10 Lymphocytes % 11.0 % (20.0-50.0) L 12/21/18 05:10 Monocytes % 12.9 % (2.0-10.0) H 12/21/18 05:10 Eosinophils % 2.3 % (0.0-5.0) 12/21/18 05:10 Basophils % 0.2 % (0.0-2.0) 12/21/18 05:10 PT 10.8 SECONDS (9.5-11.5) 12/20/18 05:30 INR 1.04 (0.5-1.4) 12/20/18 05:30 Sodium 136 mEq/L (136-145) 12/21/18 05:10 Potassium 3.4 mEq/L (3.5-5.1) L 12/21/18 05:10 Chloride 104 mEq/L (98-107) 12/21/18 05:10 Carbon Dioxide 24.0 mEq/L (21.0-31.0) 12/21/18 05:10 Anion Gap 11.4 (7.0-16.0) 12/21/18 05:10 BUN 4 mg/dL (7-25) L 12/21/18 05:10 Creatinine 0.5 mg/dL (0.6-1.2) L 12/21/18 05:10 Est GFR ( Amer) > 60.0 ml/min (>90) 12/21/18 05:10 Est GFR (Non-Af Amer) > 60.0 ml/min 12/21/18 05:10 BUN/Creatinine Ratio 8.0 12/21/18 05:10 Glucose 110 mg/dL (70-105) H 12/21/18 05:10 Calcium 8.2 mg/dL (8.6-10.3) L 12/21/18 05:10 Magnesium 2.2 mg/dL (1.9-2.7) 12/20/18 05:30 Total Bilirubin 0.3 mg/dL (0.3-1.0) 12/21/18 05:10 AST 23 U/L (13-39) 12/21/18 05:10 ALT 24 U/L (7-52) 12/21/18 05:10 Alkaline Phosphatase 89 U/L (34-104) 12/21/18 05:10 Creatine Kinase 22 U/L (30-223) L 12/18/18 16:28 Troponin I < 0.01 ng/mL (0.01-0.05) L 12/18/18 16:28 C-Reactive Protein 24.2 mg/dL (0.0-0.9) H 12/19/18 16:28 B-Natriuretic Peptide 7.3 pg/mL (5.0-100.0) 12/18/18 16:28 Total Protein 5.7 gm/dL (6.0-8.3) L 12/21/18 05:10 Albumin 3.1 gm/dL (3.7-5.3) L 12/21/18 05:10 Globulin 2.6 gm/dL 12/21/18 05:10 Albumin/Globulin Ratio 1.2 (1.0-1.8) 12/21/18 05:10 Triglycerides 82 mg/dL (<150) 12/18/18 16:28 Cholesterol 101 mg/dL (<200) 12/18/18 16:28 LDL Cholesterol Direct 53 mg/dL (75-193) L 12/18/18 16:28 HDL Cholesterol 38 mg/dL (23-92) 12/18/18 16:28 Amylase 39 U/L (29-103) 12/18/18 16:28 Lipase 11 U/L (11-82) 12/18/18 16:28 Serum , Qual NEGATIVE (NEGATIVE) 12/18/18 16:28 Urine Source CLEAN C 12/18/18 16:29 Urine Color YELLOW 12/18/18 16:29 Urine Clarity HAZY (CLEAR) 12/18/18 16:29 Urine pH 6.5 (4.6 - 8.0) 12/18/18 16:29 Ur Specific [place] 1.010 (1.005-1.030) 12/18/18 16:29 Urine Protein NEGATIVE mg/dL (NEGATIVE) 12/18/18 16:29 Urine Glucose (UA) NEGATIVE mg/dL (NEGATIVE) 12/18/18 16:29 Urine Ketones NEGATIVE mg/dL (NEGATIVE) 12/18/18 16:29 Urine Blood MODERATE (NEGATIVE) H 12/18/18 16:29 Urine Nitrate NEGATIVE (NEGATIVE) 12/18/18 16:29 Urine Bilirubin NEGATIVE (NEGATIVE) 12/18/18 16:29 Urine Urobilinogen 0.2 E.U./dL (0.2 - 1.0) 12/18/18 16:29 Ur Leukocyte Esterase TRACE (NEGATIVE) H 12/18/18 16:29 Urine RBC 2-5 /hpf (0-5) 12/18/18 16:29 Urine WBC 0-2 /hpf (0-5) 12/18/18 16:29 Ur Epithelial Cells MODERATE /lpf (FEW) 12/18/18 16:29 Urine Bacteria FEW /hpf (NONE SEEN) 12/18/18 16:29 Urine Test NEGATIVE 12/19/18 08:00 - Physical Exam Vitals and I&O: Vital Signs Temp 98.2 F 12/21/18 12:07 Pulse 80 12/21/18 12:07 Resp 17 12/21/18 12:07 BP 83/52 12/21/18 12:07 Pulse Ox 100 12/21/18 12:07 Intake & Output 12/20/18 12/21/18 12/21/18 18:59 06:59 18:59 Intake Total 400 100 Output Total 2 Balance 398 100 Weight (lbs) 51.71 kg 51.71 kg Intake: Intake, IV Amount 100 100 metroNIDAZOLE 500mg/NS 100 100 100mL 500 mg In 100 ml @ 100 mls/hr IV Q8HR [facility] Rx #:[id number] Oral 300 Output: Stool 2 Other: # Voids 3 4 # Bowel Movements 3 Stool Characteristics Liquid Liquid Liquid Brown Weight Source Bedscale Bedscale Active Medications: Current Medications Acetaminophen (Tylenol) 650 mg PO Q4H PRN PRN Reason: Pain Or Fever above 101 Stop: 02/16/19 21:41 Last Admin: 12/21/18 05:35 Dose: 650 mg Levofloxacin (Levaquin Pb) 500 mg in 100 mls @ 100 mls/hr IV Q24HR [facility] Stop: 02/16/19 21:59 Last Admin: 12/20/18 21:26 Dose: 100 mls/hr Metronidazole (Flagyl) 500 mg in 100 mls @ 100 mls/hr IV Q8HR [facility] Stop: 02/17/19 12:59 Last Admin: 12/21/18 05:23 Dose: 100 mls/hr Dextrose/Sodium Chloride (D5-0.9%Ns) 1,000 mls @ 70 mls/hr IV .[id number] [facility] Stop: 02/18/19 14:59 Lactobacillus Rhamnosus (Culturelle 15b) 1 each PO DAILY [facility] Stop: 02/17/19 08:59 Last Admin: 12/21/18 08:59 Dose: 1 each Loperamide HCl (Imodium) 4 mg PO Q4HR PRN PRN Reason: Diarrhea Stop: 02/17/19 12:34 Methylprednisolone Sodium Succinate (Solu-Medrol) 60 mg IVP Q8HR [facility] Stop: 02/19/19 08:59 Last Admin: 12/21/18 08:59 Dose: 60 mg Morphine Sulfate (Morphine) 2 mg IVP Q4H PRN PRN Reason: Abdominal Pain Stop: 02/16/19 21:41 Last Admin: 12/19/18 01:13 Dose: 2 mg Ondansetron HCl (Zofran) 4 mg IV Q8H PRN PRN Reason: Nausea / Vomiting Stop: 02/16/19 21:41 Pantoprazole Sodium (Protonix) 40 mg PO BID [facility] Stop: 02/17/19 08:59 Last Admin: 12/21/18 08:59 Dose: 40 mg General: weak, alert HEENT: NC/AT, PERRLA Neck: Supple, No JVD Lungs: CTAB Cardiovascular: RRR, Normal S1, Normal S2, without murmur Abdomen: soft, tender Extremities: excoriation Neurological: no change - Procedures Procedures: Procedures Procedure Code Date EXCISION OF ASCENDING COLON, ENDO, DIAGN [id number] 12/18/18 EXCISION OF DESCENDING COLON, ENDO, DIAGN [id number] 12/18/18 EXCISION OF DUODENUM, ENDO, DIAGN [id number] 12/18/18 EXCISION OF ILEUM, ENDO, DIAGN [id number] 12/18/18 EXCISION OF RECTUM, ENDO, DIAGN [id number] 12/18/18 EXCISION OF STOMACH, PYLORUS, ENDO, DIAGN [id number] 12/18/18 Internal Medicine Assmt/Plan - Assessment Assessment: ASSESSMENT AND PLAN: 1. Abdominal pain. 2. Recent UTI, colitis, leukocytosis, anemia, hyponatremia, diarrhea. - Plan Plan: PLAN: We will provide the patient with IV hydration, IV antibiotic. We will place the patient on GI. CT showed findings Colitis. Continue with current care. We will follow the patient closely. steroid added
[2018-12-21] MEDS: Levofloxacin 500mg/100mL 500 MG/100 ML BAG IV SCH (23:41)
[2018-12-21] MEDS: D5-0.9%NS 1,000 ML IV SCH (23:47)
[2018-12-22] MEDS: metroNIDAZOLE 500mg/NS 100mL 500 MG/100 ML BAG IV SCH ×2 (05:33→21:14)
[2018-12-22] MEDS: Pantoprazole 40 mg EC Tab PO SCH ×2 (08:36→16:09)
[2018-12-22] MEDS: Lactobacillus Rhamnosus GG 15 Billion CFU CAP.SPRINK PO SCH (08:36)
--- NOTE | 2018-12-22 08:40 | GI Progress Note ---
Subjective - Review of Systems Service Date: 12/22/18 Subjective: Still reporting abd pain, some blood in the stool as well Objective - Results Result Diagrams: 12/21/18 05:10 12/21/18 05:10 Recent Labs: Laboratory Last Values WBC 9.8 Th/cmm (4.8-10.8) 12/21/18 05:10 RBC 3.71 Mil/cmm (3.80-5.10) L 12/21/18 05:10 Hgb 11.2 gm/dL (12-16) L 12/21/18 05:10 Hct 33.2 % (41.0-60) L 12/21/18 05:10 MCV 89.6 fl (81-100) 12/21/18 05:10 MCH 30.3 pg (27.0-31.0) 12/21/18 05:10 MCHC Differential 33.8 pg (28.0-36.0) 12/21/18 05:10 RDW 12.4 % (11.5-20.0) 12/21/18 05:10 Plt Count 463 Th/cmm (150-400) H 12/21/18 05:10 MPV 7.1 fl 12/21/18 05:10 Neutrophils % 73.6 % (40.0-80.0) 12/21/18 05:10 Lymphocytes % 11.0 % (20.0-50.0) L 12/21/18 05:10 Monocytes % 12.9 % (2.0-10.0) H 12/21/18 05:10 Eosinophils % 2.3 % (0.0-5.0) 12/21/18 05:10 Basophils % 0.2 % (0.0-2.0) 12/21/18 05:10 PT 10.8 SECONDS (9.5-11.5) 12/20/18 05:30 INR 1.04 (0.5-1.4) 12/20/18 05:30 Sodium 136 mEq/L (136-145) 12/21/18 05:10 Potassium 3.4 mEq/L (3.5-5.1) L 12/21/18 05:10 Chloride 104 mEq/L (98-107) 12/21/18 05:10 Carbon Dioxide 24.0 mEq/L (21.0-31.0) 12/21/18 05:10 Anion Gap 11.4 (7.0-16.0) 12/21/18 05:10 BUN 4 mg/dL (7-25) L 12/21/18 05:10 Creatinine 0.5 mg/dL (0.6-1.2) L 12/21/18 05:10 Est GFR ( Amer) > 60.0 ml/min (>90) 12/21/18 05:10 Est GFR (Non-Af Amer) > 60.0 ml/min 12/21/18 05:10 BUN/Creatinine Ratio 8.0 12/21/18 05:10 Glucose 110 mg/dL (70-105) H 12/21/18 05:10 Calcium 8.2 mg/dL (8.6-10.3) L 12/21/18 05:10 Magnesium 2.2 mg/dL (1.9-2.7) 12/20/18 05:30 Total Bilirubin 0.3 mg/dL (0.3-1.0) 12/21/18 05:10 AST 23 U/L (13-39) 12/21/18 05:10 ALT 24 U/L (7-52) 12/21/18 05:10 Alkaline Phosphatase 89 U/L (34-104) 12/21/18 05:10 Creatine Kinase 22 U/L (30-223) L 12/18/18 16:28 Troponin I < 0.01 ng/mL (0.01-0.05) L 12/18/18 16:28 C-Reactive Protein 24.2 mg/dL (0.0-0.9) H 12/19/18 16:28 B-Natriuretic Peptide 7.3 pg/mL (5.0-100.0) 12/18/18 16:28 Total Protein 5.7 gm/dL (6.0-8.3) L 12/21/18 05:10 Albumin 3.1 gm/dL (3.7-5.3) L 12/21/18 05:10 Globulin 2.6 gm/dL 12/21/18 05:10 Albumin/Globulin Ratio 1.2 (1.0-1.8) 12/21/18 05:10 Triglycerides 82 mg/dL (<150) 12/18/18 16:28 Cholesterol 101 mg/dL (<200) 12/18/18 16:28 LDL Cholesterol Direct 53 mg/dL (75-193) L 12/18/18 16:28 HDL Cholesterol 38 mg/dL (23-92) 12/18/18 16:28 Amylase 39 U/L (29-103) 12/18/18 16: Lipase 11 U/L (11-82) 12/18/18 16:28 Serum , Qual NEGATIVE (NEGATIVE) 12/18/18 16:28 Urine Source CLEAN C 12/18/18 16:29 Urine Color YELLOW 12/18/18 16:29 Urine Clarity HAZY (CLEAR) 12/18/18 16:29 Urine pH 6.5 (4.6 - 8.0) 12/18/18 16:29 Ur Specific [place] 1.010 (1.005-1.030) 12/18/18 16:29 Urine Protein NEGATIVE mg/dL (NEGATIVE) 12/18/18 16:29 Urine Glucose (UA) NEGATIVE mg/dL (NEGATIVE) 12/18/18 16:29 Urine Ketones NEGATIVE mg/dL (NEGATIVE) 12/18/18 16:29 Urine Blood MODERATE (NEGATIVE) H 12/18/18 16:29 Urine Nitrate NEGATIVE (NEGATIVE) 12/18/18 16:29 Urine Bilirubin NEGATIVE (NEGATIVE) 12/18/18 16:29 Urine Urobilinogen 0.2 E.U./dL (0.2 - 1.0) 12/18/18 16:29 Ur Leukocyte Esterase TRACE (NEGATIVE) H 12/18/18 16:29 Urine RBC 2-5 /hpf (0-5) 12/18/18 16:29 Urine WBC 0-2 /hpf (0-5) 12/18/18 16:29 Ur Epithelial Cells MODERATE /lpf (FEW) 12/18/18 16:29 Urine Bacteria FEW /hpf (NONE SEEN) 12/18/18 16:29 Urine Test NEGATIVE 12/19/18 08:00 - Physical Exam Vitals and I&O: Vital Signs Temp 98.2 F 12/22/18 04:00 Pulse 77 12/22/18 04:00 Resp 18 12/22/18 04:00 BP 92/49 12/22/18 04:00 Pulse Ox 98 12/22/18 04:00 Intake & Output 12/21/18 12/22/18 12/22/18 18:59 06:59 18:59 Intake Total 600 100 Balance 600 100 Weight (lbs) 51.301 kg Intake: Intake, IV Amount 100 100 metroNIDAZOLE 500mg/NS 100 100 100mL 500 mg In 100 ml @ 100 mls/hr IV Q8HR [facility] Rx #:[id number] Oral 500 Other: # Voids 4 # Bowel Movements 2 Stool Characteristics Liquid Liquid Brown Brown Weight Source Bedscale Active Medications: Current Medications Acetaminophen (Tylenol) 650 mg PO Q4H PRN PRN Reason: Pain Or Fever above 101 Stop: 02/16/19 21:41 Last Admin: 12/21/18 05:35 Dose: 650 mg Levofloxacin (Levaquin Pb) 500 mg in 100 mls @ 100 mls/hr IV Q24HR [facility] Stop: 02/16/19 21:59 Last Admin: 12/21/18 23:41 Dose: 100 mls/hr Metronidazole (Flagyl) 500 mg in 100 mls @ 100 mls/hr IV Q8HR [facility] Stop: 02/17/19 12:59 Last Admin: 12/22/18 05:33 Dose: 100 mls/hr Dextrose/Sodium Chloride (D5-0.9%Ns) 1,000 mls @ 70 mls/hr IV .[id number] [facility] Stop: 02/18/19 14:59 Last Admin: 12/21/18 23:47 Dose: 70 mls/hr Lactobacillus Rhamnosus (Culturelle 15b) 1 each PO DAILY [facility] Stop: 02/17/19 08:59 Last Admin: 12/22/18 08:36 Dose: 1 each Loperamide HCl (Imodium) 4 mg PO Q4HR PRN PRN Reason: Diarrhea Stop: 02/17/19 12:34 Last Admin: 12/21/18 23:11 Dose: 4 mg Methylprednisolone Sodium Succinate (Solu-Medrol) 60 mg IVP Q8HR [facility] Stop: 02/19/19 08:59 Last Admin: 12/22/18 05:34 Dose: 60 mg Morphine Sulfate (Morphine) 2 mg IVP Q4H PRN PRN Reason: Abdominal Pain Stop: 02/16/19 21:41 Last Admin: 12/19/18 01:13 Dose: 2 mg Ondansetron HCl (Zofran) 4 mg IV Q8H PRN PRN Reason: Nausea / Vomiting Stop: 02/16/19 21:41 Pantoprazole Sodium (Protonix) 40 mg PO BID [facility] Stop: 02/17/19 08:59 Last Admin: 12/22/18 08:36 Dose: 40 mg General: Alert, Oriented x3 Neck: Supple Cardiovascular: Regular rate Abdomen: Soft, Tender, no Hepatomegaly, no Splenomegaly, no Distended, no Rebound, no Mass - Procedures Procedures: Procedures Procedure Code Date EXCISION OF ASCENDING COLON, ENDO, DIAGN [id number] 12/18/18 EXCISION OF DESCENDING COLON, ENDO, DIAGN [id number] 12/18/18 EXCISION OF DUODENUM, ENDO, DIAGN [id number] 12/18/18 EXCISION OF ILEUM, ENDO, DIAGN [id number] 12/18/18 EXCISION OF RECTUM, ENDO, DIAGN [id number] 12/18/18 EXCISION OF STOMACH, PYLORUS, ENDO, DIAGN [id number] 12/18/18 Assessment/Plan - Problem List Patient Problems: All Active Problems ABDOMINAL PAIN (Acute) Abdominal pain (Acute) R10.9 Flu-like symptoms (Acute) R68.89 - Assessment Assessment: 38 YO FEMALE WITH COLITIS SUSPECT INFLAMMATORY BOWEL DISEASE EGD SHOWED GASTRITIS CT SHOWED COLITIS AND GALLSTONES THE GALLSTONES DO NOT SEEM SYMPTOMATIC AND THE LFTS ARE NORMAL STOOL TEST NEG THUS FAR (CDIFF NEG) Need to get path report to confirm diagnosis. 1.CONT LEVAQUIN AND FLAGYL 2.cont SOLUMEDROL for now, will need to trend symptoms 3.CONT SUPP CARE
[2018-12-22 14:09] LABS: HEP A AB IGM Negative (Negative); HEP B CORE IGM Negative (Negative); HEP B SURFACE AG QL Negative (Negative); HEP C ANTIBODY <0.1 s/co ratio (0.0-0.9)
[2018-12-22] MEDS ORDERED: Probiotic Screen MC PRN (14:56)
[2018-12-22] MEDS: D5-0.9%NS 1,000 ML IV SCH (18:08)
--- NOTE | 2018-12-22 21:04 | Internal Medicine Prog Note ---
Internal Medicine Subjective - Subjective Patient seen and examined:: with staff, chart reviewed, other (still in pain) Patient is:: awake, verbal, interactive, ambulating Patient Complaints of:: diarrhea, pain with urination, unable to sleep Per staff patient has:: no adverse event, no episodes of fall, tolerating meds Internal Medicine Objective - Results Result Diagrams: 12/21/18 05:10 12/21/18 05:10 Recent Labs: Laboratory Last Values WBC 9.8 Th/cmm (4.8-10.8) 12/21/18 05:10 RBC 3.71 Mil/cmm (3.80-5.10) L 12/21/18 05:10 Hgb 11.2 gm/dL (12-16) L 12/21/18 05:10 Hct 33.2 % (41.0-60) L 12/21/18 05:10 MCV 89.6 fl (81-100) 12/21/18 05:10 MCH 30.3 pg (27.0-31.0) 12/21/18 05:10 MCHC Differential 33.8 pg (28.0-36.0) 12/21/18 05:10 RDW 12.4 % (11.5-20.0) 12/21/18 05:10 Plt Count 463 Th/cmm (150-400) H 12/21/18 05:10 MPV 7.1 fl 12/21/18 05:10 Neutrophils % 73.6 % (40.0-80.0) 12/21/18 05:10 Lymphocytes % 11.0 % (20.0-50.0) L 12/21/18 05:10 Monocytes % 12.9 % (2.0-10.0) H 12/21/18 05:10 Eosinophils % 2.3 % (0.0-5.0) 12/21/18 05:10 Basophils % 0.2 % (0.0-2.0) 12/21/18 05:10 PT 10.8 SECONDS (9.5-11.5) 12/20/18 05:30 INR 1.04 (0.5-1.4) 12/20/18 05:30 Sodium 136 mEq/L (136-145) 12/21/18 05:10 Potassium 3.4 mEq/L (3.5-5.1) L 12/21/18 05:10 Chloride 104 mEq/L (98-107) 12/21/18 05:10 Carbon Dioxide 24.0 mEq/L (21.0-31.0) 12/21/18 05:10 Anion Gap 11.4 (7.0-16.0) 12/21/18 05:10 BUN 4 mg/dL (7-25) L 12/21/18 05:10 Creatinine 0.5 mg/dL (0.6-1.2) L 12/21/18 05:10 Est GFR ( Amer) > 60.0 ml/min (>90) 12/21/18 05:10 Est GFR (Non-Af Amer) > 60.0 ml/min 12/21/18 05:10 BUN/Creatinine Ratio 8.0 12/21/18 05:10 Glucose 110 mg/dL (70-105) H 12/21/18 05:10 Calcium 8.2 mg/dL (8.6-10.3) L 12/21/18 05:10 Magnesium 2.2 mg/dL (1.9-2.7) 12/20/18 05:30 Total Bilirubin 0.3 mg/dL (0.3-1.0) 12/21/18 05:10 AST 23 U/L (13-39) 12/21/18 05:10 ALT 24 U/L (7-52) 12/21/18 05:10 Alkaline Phosphatase 89 U/L (34-104) 12/21/18 05:10 Creatine Kinase 22 U/L (30-223) L 12/18/18 16:28 Troponin I < 0.01 ng/mL (0.01-0.05) L 12/18/18 16:28 C-Reactive Protein 24.2 mg/dL (0.0-0.9) H 12/19/18 16:28 B-Natriuretic Peptide 7.3 pg/mL (5.0-100.0) 12/18/18 16:28 Total Protein 5.7 gm/dL (6.0-8.3) L 12/21/18 05:10 Albumin 3.1 gm/dL (3.7-5.3) L 12/21/18 05:10 Globulin 2.6 gm/dL 12/21/18 05:10 Albumin/Globulin Ratio 1.2 (1.0-1.8) 12/21/18 05:10 Triglycerides 82 mg/dL (<150) 12/18/18 16:28 Cholesterol 101 mg/dL (<200) 12/18/18 16:28 LDL Cholesterol Direct 53 mg/dL (75-193) L 12/18/18 16:28 HDL Cholesterol 38 mg/dL (23-92) 12/18/18 16:28 Amylase 39 U/L (29-103) 12/18/18 16:28 Lipase 11 U/L (11-82) 12/18/18 16:28 Serum , Qual NEGATIVE (NEGATIVE) 12/18/18 16:28 Urine Source CLEAN C 12/18/18 16:29 Urine Color YELLOW 12/18/18 16:29 Urine Clarity HAZY (CLEAR) 12/18/18 16:29 Urine pH 6.5 (4.6 - 8.0) 12/18/18 16:29 Ur Specific [place] 1.010 (1.005-1.030) 12/18/18 16:29 Urine Protein NEGATIVE mg/dL (NEGATIVE) 12/18/18 16:29 Urine Glucose (UA) NEGATIVE mg/dL (NEGATIVE) 12/18/18 16:29 Urine Ketones NEGATIVE mg/dL (NEGATIVE) 12/18/18 16:29 Urine Blood MODERATE (NEGATIVE) H 12/18/18 16:29 Urine Nitrate NEGATIVE (NEGATIVE) 12/18/18 16:29 Urine Bilirubin NEGATIVE (NEGATIVE) 12/18/18 16:29 Urine Urobilinogen 0.2 E.U./dL (0.2 - 1.0) 12/18/18 16:29 Ur Leukocyte Esterase TRACE (NEGATIVE) H 12/18/18 16:29 Urine RBC 2-5 /hpf (0-5) 12/18/18 16:29 Urine WBC 0-2 /hpf (0-5) 12/18/18 16:29 Ur Epithelial Cells MODERATE /lpf (FEW) 12/18/18 16:29 Urine Bacteria FEW /hpf (NONE SEEN) 12/18/18 16:29 Urine Test NEGATIVE 12/19/18 08:00 Hepatitis A IgM Ab Negative (Negative) 12/21/18 05:10 Hep Bs Antigen Negative (Negative) 12/21/18 05:10 Hep B Core IgM Ab Negative (Negative) 12/21/18 05:10 Hepatitis C Antibody <0.1 s/co ratio (0.0-0.9) 12/21/18 05:10 - Physical Exam Vitals and I&O: Vital Signs Temp 98.1 F 12/22/18 16:00 Pulse 81 12/22/18 16:00 Resp 18 12/22/18 20:00 BP 122/66 12/22/18 16:00 Pulse Ox 98 12/22/18 16:00 Intake & Output 12/22/18 12/22/18 12/23/18 06:59 18:59 06:59 Intake Total 100 1800 Balance 100 1800 Weight (lbs) 51.256 kg Intake: Intake, IV Amount 100 1100 D5-0.9%Ns 1,000 ml @ 70 1000 mls/hr IV .[id number] [facility] Rx #:[id number] metroNIDAZOLE 500mg/NS 100 100 100mL 500 mg In 100 ml @ 100 mls/hr IV Q8HR [facility] Rx #:[id number] Oral 700 Other: # Voids 3 # Bowel Movements 2 Stool Characteristics Liquid Brown Weight Source Bedscale Active Medications: Current Medications Acetaminophen (Tylenol) 650 mg PO Q4H PRN PRN Reason: Pain Or Fever above 101 Stop: 02/16/19 21:41 Last Admin: 12/22/18 19:31 Dose: 650 mg Levofloxacin (Levaquin Pb) 500 mg in 100 mls @ 100 mls/hr IV Q24HR [facility] Stop: 02/16/19 21:59 Last Admin: 12/21/18 23:41 Dose: 100 mls/hr Metronidazole (Flagyl) 500 mg in 100 mls @ 100 mls/hr IV Q8HR [facility] Stop: 02/17/19 12:59 Last Infusion: 12/22/18 16:06 Dose: Infused Dextrose/Sodium Chloride (D5-0.9%Ns) 1,000 mls @ 70 mls/hr IV .[id number] [facility] Stop: 02/18/19 14:59 Last Admin: 12/22/18 18:08 Dose: 70 mls/hr Loperamide HCl (Imodium) 4 mg PO Q4HR PRN PRN Reason: Diarrhea Stop: 02/17/19 12:34 Last Admin: 12/21/18 23:11 Dose: 4 mg Methylprednisolone Sodium Succinate (Solu-Medrol) 60 mg IVP DAILY [facility] Stop: 02/20/19 08:59 Last Admin: 12/22/18 09:32 Dose: 60 mg Miscellaneous (Probiotic Screen) 1 ea [facility] PRN PRN PRN Reason: PROTOCOL Stop: 02/20/19 14:55 Morphine Sulfate (Morphine) 2 mg IVP Q4H PRN PRN Reason: Abdominal Pain Stop: 02/16/19 21:41 Last Admin: 12/19/18 01:13 Dose: 2 mg Ondansetron HCl (Zofran) 4 mg IV Q8H PRN PRN Reason: Nausea / Vomiting Stop: 02/16/19 21:41 Pantoprazole Sodium (Protonix) 40 mg PO BID [facility] Stop: 02/17/19 08:59 Last Admin: 12/22/18 16:09 Dose: 40 mg General: weak, alert HEENT: NC/AT, PERRLA Neck: Supple, No JVD Lungs: CTAB Cardiovascular: RRR, Normal S1, Normal S2, without murmur Abdomen: soft, tender Extremities: excoriation Neurological: no change - Procedures Procedures: Procedures Procedure Code Date EXCISION OF ASCENDING COLON, ENDO, DIAGN [id number] 12/18/18 EXCISION OF DESCENDING COLON, ENDO, DIAGN [id number] 12/18/18 EXCISION OF DUODENUM, ENDO, DIAGN [id number] 12/18/18 EXCISION OF ILEUM, ENDO, DIAGN [id number] 12/18/18 EXCISION OF RECTUM, ENDO, DIAGN [id number] 12/18/18 EXCISION OF STOMACH, PYLORUS, ENDO, DIAGN [id number] 12/18/18 Internal Medicine Assmt/Plan - Assessment Assessment: ASSESSMENT AND PLAN: 1. Abdominal pain. 2. Recent UTI, colitis, leukocytosis, anemia, hyponatremia, diarrhea. - Plan Plan: PLAN: We will provide the patient with IV hydration, IV antibiotic. We will place the patient on GI. CT showed findings Colitis. Continue with current care. We will follow the patient closely. steroid added Nutritional Asmnt/Malnutr-PDOC - Dietary Evaluation Malnutrition Findings (Please click <Entered> for more info): Nutritional Asmnt/Malnutrition Start: 12/22/18 13: 05 Text: Status: Complete Freq: Protocol: Document 12/22/18 13:05 TITUS (Rec: 12/22/18 13:20 TITUS GERSON- [email or web address]) Nutritional Asmnt/Malnutrition Patient General Information Nutritional Screening Moderate Risk Diagnosis Abdominal pain Pertinent Medical Hx/Surgical Hx UTI, colitis Subjective Information Patient in bed at time of visit with family at bedside. TOelrating current diet order as ordered without difficulty. Current Diet Order/ Nutrition Support Soft/bland Patient / S.O Not Indicated Pertinent Medications culturelle, imodium, solu- medrol, flagyl, zofran, protonix Pertinent Labs (12/21) K 3.4, Albumin 3.1 Nutritional Hx/Data Height 1.63 m Height (Calculated Centimeters) 162.6 Current Weight (lbs) 51.256 kg Weight (Calculated Kilograms) 51.3 Weight (Calculated Grams) 70109.9 [place] Body Weight 120 % [place] Body Weight 94 Body Mass Index (BMI) 19.3 Recent Weight Change No Weight Status Approriate GI Symptoms GI Symptoms Diarrhea Last BM 12/21 x2 Difficult in: None Food Allergies No Cultural/Ethnic/Zoroastrianism Belief none indicated Usual diet at home unknown Skin Integrity/Comment: Toi 22, intact Current %PO Good (75-100%) Estimated Nutritional Goals BEE in Kcals: Using Current wt Calories/Kcals/Kg using CBW 51.3 kg 30-35 kcal/ kg Kcals Calculated ~2806-8559 kcal/day Protein: Using Current wt Protein g/k.1-1.3 gm/kg CBW Protein Calculated 55-65 gm/day Fluid: ml ~2234-9577 ml/day Nutritional Problem 1. Problem Problem Altered nutrition related lab values related to Etiology electrolyte imbalance aeb Signs/Symptoms: K 3.4 Intervention/Recommendation Comments 1. Continue soft/bland diet as tolerated by patient. Encourage intake of high potassium foods including fruits and vegatables. 2. Continue imodium as ordered by MD to assist with diarrhea . Expected Outcomes/Goals Expected Outcomes/Goals Oral intake >75% of meals, weight stable or gain toward IBW, nutrition related labs WNL, skin intact F/U in 3-5 days as MR 3/5-7
[2018-12-22] MEDS: Levofloxacin 500mg/100mL 500 MG/100 ML BAG IV SCH (22:35)
[2018-12-23] MEDS: metroNIDAZOLE 500mg/NS 100mL 500 MG/100 ML BAG IV SCH ×3 (05:26→21:12)
[2018-12-23 05:30] LABS: HEMATOCRIT 33.3 % (41.0-60); HEMOGLOBIN 10.8 gm/dL (12-16); MEAN CELL VOLUME 91.6 fl (81-100); MEAN CORPUSCULAR HEMOGLOBIN 29.6 pg (27.0-31.0); MEAN CORPUSCULAR HGB CONC 32.3 pg (28.0-36.0); MEAN PLATELET VOLUME 6.6 fl; PLATELET COUNT 478 Th/cmm (150-400); RED BLOOD COUNT 3.64 Mil/cmm (3.80-5.10); RED CELL DISTRIBUTION WIDTH 12.3 % (11.5-20.0)
[2018-12-23 06:26] LABS: NEUTROPHILS 86 % (40-80)
[2018-12-23 06:27] LABS: ALB/GLOB RATIO 1.2 (1.0-1.8); ALKALINE PHOSPHATASE 101 U/L (34-104); ANION GAP 11.1 (7.0-16.0); BAND NEUTROPHILE 0 % (0-10); BASOPHIL 0 % (0-3); BILIRUBIN,TOTAL 0.2 mg/dL (0.3-1.0); BUN - UREA NITROGEN 15 mg/dL (7-25); CALCIUM SERUM 8.1 mg/dL (8.6-10.3); CARBON DIOXIDE 25.6 mEq/L (21.0-31.0); CHLORIDE 106 mEq/L (98-107); CREATININE - SERUM 0.5 mg/dL (0.6-1.2); EOSINOPHIL 0 % (0-5); GFR AFRICAN-AMERICAN > 60.0 ml/min (>90); GFR NON AFRICAN-AMERICAN > 60.0 ml/min; GLUCOSE 152 mg/dL (70-105); LYMPHOCYTE 7 % (20-50); MONOCYTE 7 % (2-10); POTASSIUM SERUM 3.7 mEq/L (3.5-5.1); SGOT 39 U/L (13-39); SGPT/ALT 29 U/L (7-52); SODIUM SERUM 139 mEq/L (136-145); TOTAL PROTEIN,SERUM 5.6 gm/dL (6.0-8.3)
--- NOTE | 2018-12-23 08:08 | GI Progress Note ---
Subjective - Review of Systems Service Date: 12/23/18 Subjective: Feeling a bit better today, no blood in the stool Objective - Results Result Diagrams: 12/23/18 05:06 12/23/18 05:06 Recent Labs: Laboratory Last Values WBC 19.0 Th/cmm (4.8-10.8) H 12/23/18 05:06 RBC 3.64 Mil/cmm (3.80-5.10) L 12/23/18 05:06 Hgb 10.8 gm/dL (12-16) L 12/23/18 05:06 Hct 33.3 % (41.0-60) L 12/23/18 05:06 MCV 91.6 fl (81-100) 12/23/18 05:06 MCH 29.6 pg (27.0-31.0) 12/23/18 05:06 MCHC Differential 32.3 pg (28.0-36.0) 12/23/18 05:06 RDW 12.3 % (11.5-20.0) 12/23/18 05:06 Plt Count 478 Th/cmm (150-400) H 12/23/18 05:06 MPV 6.6 fl 12/23/18 05:06 Add Manual Diff YES 12/23/18 05:06 Neutrophils % 73.6 % (40.0-80.0) 12/21/18 05:10 Band Neutrophils % 0 % (0-10) 12/23/18 05:06 Lymphocytes % 11.0 % (20.0-50.0) L 12/21/18 05:10 Monocytes % 12.9 % (2.0-10.0) H 12/21/18 05:10 Eosinophils % 2.3 % (0.0-5.0) 12/21/18 05:10 Basophils % 0.2 % (0.0-2.0) 12/21/18 05:10 Neutrophils (Manual) 86 % (40-80) H 12/23/18 05:06 Lymphocytes 7 % (20-50) L 12/23/18 05:06 Monocytes 7 % (2-10) 12/23/18 05:06 Eosinophils 0 % (0-5) 12/23/18 05:06 Basophils 0 % (0-3) 12/23/18 05:06 PT 10.8 SECONDS (9.5-11.5) 12/20/18 05:30 INR 1.04 (0.5-1.4) 12/20/18 05:30 Sodium 139 mEq/L (136-145) 12/23/18 05:06 Potassium 3.7 mEq/L (3.5-5.1) 12/23/18 05:06 Chloride 106 mEq/L (98-107) 12/23/18 05:06 Carbon Dioxide 25.6 mEq/L (21.0-31.0) 12/23/18 05:06 Anion Gap 11.1 (7.0-16.0) 12/23/18 05:06 BUN 15 mg/dL (7-25) 12/23/18 05:06 Creatinine 0.5 mg/dL (0.6-1.2) L 12/23/18 05:06 Est GFR ( Amer) > 60.0 ml/min (>90) 12/23/18 05:06 Est GFR (Non-Af Amer) > 60.0 ml/min 12/23/18 05:06 BUN/Creatinine Ratio 30.0 12/23/18 05:06 Glucose 152 mg/dL (70-105) H 12/23/18 05:06 Calcium 8.1 mg/dL (8.6-10.3) L 12/23/18 05:06 Magnesium 2.2 mg/dL (1.9-2.7) 12/20/18 05:30 Total Bilirubin 0.2 mg/dL (0.3-1.0) L 12/23/18 05:06 AST 39 U/L (13-39) 12/23/18 05:06 ALT 29 U/L (7-52) 12/23/18 05:06 Alkaline Phosphatase 101 U/L (34-104) 12/23/18 05:06 Creatine Kinase 22 U/L (30-223) L 12/18/18 16:28 Troponin I < 0.01 ng/mL (0.01-0.05) L 12/18/18 16:28 C-Reactive Protein 24.2 mg/dL (0.0-0.9) H 12/19/18 16:28 B-Natriuretic Peptide 7.3 pg/mL (5.0-100.0) 12/18/18 16:28 Total Protein 5.6 gm/dL (6.0-8.3) L 12/23/18 05:06 Albumin 3.0 gm/dL (3.7-5.3) L 12/23/18 05:06 Globulin 2.6 gm/dL 12/23/18 05:06 Albumin/Globulin Ratio 1.2 (1.0-1.8) 12/23/18 05:06 Triglycerides 82 mg/dL (<150) 12/18/18 16:28 Cholesterol 101 mg/dL (<200) 12/18/18 16:28 LDL Cholesterol Direct 53 mg/dL (75-193) L 12/18/18 16:28 HDL Cholesterol 38 mg/dL (23-92) 12/18/18 16:28 Amylase 39 U/L (29-103) 12/18/18 16:28 Lipase 11 U/L (11-82) 12/18/18 16:28 Serum , Qual NEGATIVE (NEGATIVE) 12/18/18 16:28 Urine Source CLEAN C 12/18/18 16:29 Urine Color YELLOW 12/18/18 16:29 Urine Clarity HAZY (CLEAR) 12/18/18 16:29 Urine pH 6.5 (4.6 - 8.0) 12/18/18 16:29 Ur Specific [place] 1.010 (1.005-1.030) 12/18/18 16:29 Urine Protein NEGATIVE mg/dL (NEGATIVE) 12/18/18 16:29 Urine Glucose (UA) NEGATIVE mg/dL (NEGATIVE) 12/18/18 16:29 Urine Ketones NEGATIVE mg/dL (NEGATIVE) 12/18/18 16:29 Urine Blood MODERATE (NEGATIVE) H 12/18/18 16:29 Urine Nitrate NEGATIVE (NEGATIVE) 12/18/18 16:29 Urine Bilirubin NEGATIVE (NEGATIVE) 12/18/18 16:29 Urine Urobilinogen 0.2 E.U./dL (0.2 - 1.0) 12/18/18 16:29 Ur Leukocyte Esterase TRACE (NEGATIVE) H 12/18/18 16:29 Urine RBC 2-5 /hpf (0-5) 12/18/18 16:29 Urine WBC 0-2 /hpf (0-5) 12/18/18 16:29 Ur Epithelial Cells MODERATE /lpf (FEW) 12/18/18 16:29 Urine Bacteria FEW /hpf (NONE SEEN) 12/18/18 16:29 Urine Test NEGATIVE 12/19/18 08:00 Hepatitis A IgM Ab Negative (Negative) 12/21/18 05:10 Hep Bs Antigen Negative (Negative) 12/21/18 05:10 Hep B Core IgM Ab Negative (Negative) 12/21/18 05:10 Hepatitis C Antibody <0.1 s/co ratio (0.0-0.9) 12/21/18 05:10 - Physical Exam Vitals and I&O: Vital Signs Temp 97.8 F 12/23/18 04:00 Pulse 87 12/23/18 04:00 Resp 18 12/23/18 04:00 BP 117/61 12/23/18 04:00 Pulse Ox 98 12/23/18 04:00 Intake & Output 12/22/18 12/23/18 12/23/18 18:59 06:59 18:59 Intake Total 1800 500 Balance 1800 500 Weight (lbs) 51.256 kg 51.256 kg Intake: Intake, IV Amount 1100 300 D5-0.9%Ns 1,000 ml @ 70 1000 mls/hr IV .[id number] [facility] Rx #:[id number] Levofloxacin 500mg/100mL 100 500 mg In 100 ml @ 100 mls/hr IV Q24HR [facility] Rx#: [id number] metroNIDAZOLE 500mg/NS 100 200 100mL 500 mg In 100 ml @ 100 mls/hr IV Q8HR [facility] Rx #:[id number] Oral 700 200 Other: # Voids 3 1 # Bowel Movements 2 1 Weight Source Bedscale Bedscale Active Medications: Current Medications Acetaminophen (Tylenol) 650 mg PO Q4H PRN PRN Reason: Pain Or Fever above 101 Stop: 02/16/19 21:41 Last Admin: 12/22/18 19:31 Dose: 650 mg Levofloxacin (Levaquin Pb) 500 mg in 100 mls @ 100 mls/hr IV Q24HR [facility] Stop: 02/16/19 21:59 Last Infusion: 12/23/18 02:35 Dose: Infused Metronidazole (Flagyl) 500 mg in 100 mls @ 100 mls/hr IV Q8HR [facility] Stop: 02/17/19 12:59 Last Infusion: 12/23/18 06:31 Dose: Infused Dextrose/Sodium Chloride (D5-0.9%Ns) 1,000 mls @ 70 mls/hr IV .[id number] [facility] Stop: 02/18/19 14:59 Last Admin: 12/22/18 18:08 Dose: 70 mls/hr Loperamide HCl (Imodium) 4 mg PO Q4HR PRN PRN Reason: Diarrhea Stop: 02/17/19 12:34 Last Admin: 12/21/18 23:11 Dose: 4 mg Methylprednisolone Sodium Succinate (Solu-Medrol) 60 mg IVP DAILY [facility] Stop: 02/20/19 08:59 Last Admin: 12/22/18 09:32 Dose: 60 mg Miscellaneous (Probiotic Screen) 1 ea [facility] PRN PRN PRN Reason: PROTOCOL Stop: 02/20/19 14:55 Morphine Sulfate (Morphine) 2 mg IVP Q4H PRN PRN Reason: Abdominal Pain Stop: 02/16/19 21:41 Last Admin: 12/19/18 01:13 Dose: 2 mg Ondansetron HCl (Zofran) 4 mg IV Q8H PRN PRN Reason: Nausea / Vomiting Stop: 02/16/19 21:41 Pantoprazole Sodium (Protonix) 40 mg PO BID [facility] Stop: 02/17/19 08:59 Last Admin: 12/22/18 16:09 Dose: 40 mg General: Alert, Oriented x3 Neck: Supple Cardiovascular: Regular rate Abdomen: Soft, Tender, no Hepatomegaly, no Splenomegaly, no Distended, no Rebound, no Mass - Procedures Procedures: Procedures Procedure Code Date EXCISION OF ASCENDING COLON, ENDO, DIAGN [id number] 12/18/18 EXCISION OF DESCENDING COLON, ENDO, DIAGN [id number] 12/18/18 EXCISION OF DUODENUM, ENDO, DIAGN [id number] 12/18/18 EXCISION OF ILEUM, ENDO, DIAGN [id number] 12/18/18 EXCISION OF RECTUM, ENDO, DIAGN [id number] 12/18/18 EXCISION OF STOMACH, PYLORUS, ENDO, DIAGN [id number] 12/18/18 Assessment/Plan - Problem List Patient Problems: All Active Problems ABDOMINAL PAIN (Acute) Abdominal pain (Acute) R10.9 Flu-like symptoms (Acute) R68.89 - Assessment Assessment: 38 YO FEMALE WITH COLITIS SUSPECT INFLAMMATORY BOWEL DISEASE EGD SHOWED GASTRITIS CT SHOWED COLITIS AND GALLSTONES THE GALLSTONES DO NOT SEEM SYMPTOMATIC AND THE LFTS ARE NORMAL STOOL TEST NEG THUS FAR (CDIFF NEG) Need to get path report to confirm diagnosis. 1.CONT LEVAQUIN AND FLAGYL for a 7 day course 2.cont SOLUMEDROL for now at 60mg daily dosing. Once she is ready for dc, would recommend a steroid taper by 5mg each week 3.CONT SUPP CARE 4. Will need GI follow up 5. f/u TB and viral hepatitis in case she needs anti TNF 6. inflammatory markers
[2018-12-23] MEDS: Pantoprazole 40 mg EC Tab PO SCH ×2 (08:21→16:01)
[2018-12-23] MEDS: Enoxaparin 30 mg/0.3 mL 0.3mL Syr SUBQ SCH (08:23)
--- NOTE | 2018-12-23 11:08 | Internal Medicine Prog Note ---
Internal Medicine Subjective - Subjective Patient seen and examined:: with staff, chart reviewed, other (still in pain) Patient is:: awake, verbal, interactive, ambulating Patient Complaints of:: diarrhea, pain with urination, unable to sleep Per staff patient has:: no adverse event, no episodes of fall, tolerating meds Internal Medicine Objective - Results Result Diagrams: 12/23/18 05:06 12/23/18 05:06 Recent Labs: Laboratory Last Values WBC 19.0 Th/cmm (4.8-10.8) H 12/23/18 05:06 RBC 3.64 Mil/cmm (3.80-5.10) L 12/23/18 05:06 Hgb 10.8 gm/dL (12-16) L 12/23/18 05:06 Hct 33.3 % (41.0-60) L 12/23/18 05:06 MCV 91.6 fl (81-100) 12/23/18 05:06 MCH 29.6 pg (27.0-31.0) 12/23/18 05:06 MCHC Differential 32.3 pg (28.0-36.0) 12/23/18 05:06 RDW 12.3 % (11.5-20.0) 12/23/18 05:06 Plt Count 478 Th/cmm (150-400) H 12/23/18 05:06 MPV 6.6 fl 12/23/18 05:06 Add Manual Diff YES 12/23/18 05:06 Neutrophils % 73.6 % (40.0-80.0) 12/21/18 05:10 Band Neutrophils % 0 % (0-10) 12/23/18 05:06 Lymphocytes % 11.0 % (20.0-50.0) L 12/21/18 05:10 Monocytes % 12.9 % (2.0-10.0) H 12/21/18 05:10 Eosinophils % 2.3 % (0.0-5.0) 12/21/18 05:10 Basophils % 0.2 % (0.0-2.0) 12/21/18 05:10 Neutrophils (Manual) 86 % (40-80) H 12/23/18 05:06 Lymphocytes 7 % (20-50) L 12/23/18 05:06 Monocytes 7 % (2-10) 12/23/18 05:06 Eosinophils 0 % (0-5) 12/23/18 05:06 Basophils 0 % (0-3) 12/23/18 05:06 PT 10.8 SECONDS (9.5-11.5) 12/20/18 05:30 INR 1.04 (0.5-1.4) 12/20/18 05:30 Sodium 139 mEq/L (136-145) 12/23/18 05:06 Potassium 3.7 mEq/L (3.5-5.1) 12/23/18 05:06 Chloride 106 mEq/L (98-107) 12/23/18 05:06 Carbon Dioxide 25.6 mEq/L (21.0-31.0) 12/23/18 05:06 Anion Gap 11.1 (7.0-16.0) 12/23/18 05:06 BUN 15 mg/dL (7-25) 12/23/18 05:06 Creatinine 0.5 mg/dL (0.6-1.2) L 12/23/18 05:06 Est GFR ( Amer) > 60.0 ml/min (>90) 12/23/18 05:06 Est GFR (Non-Af Amer) > 60.0 ml/min 12/23/18 05:06 BUN/Creatinine Ratio 30.0 12/23/18 05:06 Glucose 152 mg/dL (70-105) H 12/23/18 05:06 Calcium 8.1 mg/dL (8.6-10.3) L 12/23/18 05:06 Magnesium 2.2 mg/dL (1.9-2.7) 12/20/18 05:30 Total Bilirubin 0.2 mg/dL (0.3-1.0) L 12/23/18 05:06 AST 39 U/L (13-39) 12/23/18 05:06 ALT 29 U/L (7-52) 12/23/18 05:06 Alkaline Phosphatase 101 U/L (34-104) 12/23/18 05:06 Creatine Kinase 22 U/L (30-223) L 12/18/18 16:28 Troponin I < 0.01 ng/mL (0.01-0.05) L 12/18/18 16:28 C-Reactive Protein 24.2 mg/dL (0.0-0.9) H 12/19/18 16:28 B-Natriuretic Peptide 7.3 pg/mL (5.0-100.0) 12/18/18 16:28 Total Protein 5.6 gm/dL (6.0-8.3) L 12/23/18 05:06 Albumin 3.0 gm/dL (3.7-5.3) L 12/23/18 05:06 Globulin 2.6 gm/dL 12/23/18 05:06 Albumin/Globulin Ratio 1.2 (1.0-1.8) 12/23/18 05:06 Triglycerides 82 mg/dL (<150) 12/18/18 16:28 Cholesterol 101 mg/dL (<200) 12/18/18 16:28 LDL Cholesterol Direct 53 mg/dL (75-193) L 12/18/18 16:28 HDL Cholesterol 38 mg/dL (23-92) 12/18/18 16:28 Amylase 39 U/L (29-103) 12/18/18 16:28 Lipase 11 U/L (11-82) 12/18/18 16:28 Serum , Qual NEGATIVE (NEGATIVE) 12/18/18 16:28 Urine Source CLEAN C 12/18/18 16:29 Urine Color YELLOW 12/18/18 16:29 Urine Clarity HAZY (CLEAR) 12/18/18 16:29 Urine pH 6.5 (4.6 - 8.0) 12/18/18 16:29 Ur Specific [place] 1.010 (1.005-1.030) 12/18/18 16:29 Urine Protein NEGATIVE mg/dL (NEGATIVE) 12/18/18 16:29 Urine Glucose (UA) NEGATIVE mg/dL (NEGATIVE) 12/18/18 16:29 Urine Ketones NEGATIVE mg/dL (NEGATIVE) 12/18/18 16:29 Urine Blood MODERATE (NEGATIVE) H 12/18/18 16:29 Urine Nitrate NEGATIVE (NEGATIVE) 12/18/18 16:29 Urine Bilirubin NEGATIVE (NEGATIVE) 12/18/18 16:29 Urine Urobilinogen 0.2 E.U./dL (0.2 - 1.0) 12/18/18 16:29 Ur Leukocyte Esterase TRACE (NEGATIVE) H 12/18/18 16:29 Urine RBC 2-5 /hpf (0-5) 12/18/18 16:29 Urine WBC 0-2 /hpf (0-5) 12/18/18 16:29 Ur Epithelial Cells MODERATE /lpf (FEW) 12/18/18 16:29 Urine Bacteria FEW /hpf (NONE SEEN) 12/18/18 16:29 Urine Test NEGATIVE 12/19/18 08:00 Hepatitis A IgM Ab Negative (Negative) 12/21/18 05:10 Hep Bs Antigen Negative (Negative) 12/21/18 05:10 Hep B Core IgM Ab Negative (Negative) 12/21/18 05:10 Hepatitis C Antibody <0.1 s/co ratio (0.0-0.9) 12/21/18 05:10 - Physical Exam Vitals and I&O: Vital Signs Temp 98.2 F 12/23/18 08:00 Pulse 57 12/23/18 08:00 Resp 18 12/23/18 08:00 BP 112/70 12/23/18 08:00 Pulse Ox 100 12/23/18 08:00 Intake & Output 12/22/18 12/23/18 12/23/18 18:59 06:59 18:59 Intake Total 1800 500 Balance 1800 500 Weight (lbs) 51.256 kg 51.256 kg Intake: Intake, IV Amount 1100 300 D5-0.9%Ns 1,000 ml @ 70 1000 mls/hr IV .[id number] [facility] Rx #:[id number] Levofloxacin 500mg/100mL 100 500 mg In 100 ml @ 100 mls/hr IV Q24HR [facility] Rx#: [id number] metroNIDAZOLE 500mg/NS 100 200 100mL 500 mg In 100 ml @ 100 mls/hr IV Q8HR [facility] Rx #:[id number] Oral 700 200 Other: # Voids 3 1 # Bowel Movements 2 1 Stool Characteristics Liquid Brown Weight Source Bedscale Bedscale Active Medications: Current Medications Acetaminophen (Tylenol) 650 mg PO Q4H PRN PRN Reason: Pain Or Fever above 101 Stop: 02/16/19 21:41 Last Admin: 12/22/18 19:31 Dose: 650 mg Enoxaparin Sodium (Lovenox) 30 mg SUBQ Q24HR [facility] Stop: 02/21/19 08:14 Last Admin: 12/23/18 08:23 Dose: 30 mg Levofloxacin (Levaquin Pb) 500 mg in 100 mls @ 100 mls/hr IV Q24HR [facility] Stop: 02/16/19 21:59 Last Infusion: 12/23/18 02:35 Dose: Infused Metronidazole (Flagyl) 500 mg in 100 mls @ 100 mls/hr IV Q8HR [facility] Stop: 02/17/19 12:59 Last Infusion: 12/23/18 06:31 Dose: Infused Dextrose/Sodium Chloride (D5-0.9%Ns) 1,000 mls @ 70 mls/hr IV .[id number] [facility] Stop: 02/18/19 14:59 Last Admin: 12/22/18 18:08 Dose: 70 mls/hr Loperamide HCl (Imodium) 4 mg PO Q4HR PRN PRN Reason: Diarrhea Stop: 02/17/19 12:34 Last Admin: 12/21/18 23:11 Dose: 4 mg Methylprednisolone Sodium Succinate (Solu-Medrol) 60 mg IVP DAILY [facility] Stop: 02/20/19 08:59 Last Admin: 12/23/18 08:21 Dose: 60 mg Miscellaneous (Probiotic Screen) 1 ea MC PRN PRN PRN Reason: PROTOCOL Stop: 02/20/19 14:55 Morphine Sulfate (Morphine) 2 mg IVP Q4H PRN PRN Reason: Abdominal Pain Stop: 02/16/19 21:41 Last Admin: 12/19/18 01:13 Dose: 2 mg Ondansetron HCl (Zofran) 4 mg IV Q8H PRN PRN Reason: Nausea / Vomiting Stop: 02/16/19 21:41 Pantoprazole Sodium (Protonix) 40 mg PO BID [facility] Stop: 02/17/19 08:59 Last Admin: 12/23/18 08:21 Dose: 40 mg General: weak, alert HEENT: NC/AT, PERRLA Neck: Supple, No JVD Lungs: CTAB Cardiovascular: RRR, Normal S1, Normal S2, without murmur Abdomen: soft, tender Extremities: excoriation Neurological: no change - Procedures Procedures: Procedures Procedure Code Date EXCISION OF ASCENDING COLON, ENDO, DIAGN [id number] 12/18/18 EXCISION OF DESCENDING COLON, ENDO, DIAGN [id number] 12/18/18 EXCISION OF DUODENUM, ENDO, DIAGN [id number] 12/18/18 EXCISION OF ILEUM, ENDO, DIAGN [id number] 12/18/18 EXCISION OF RECTUM, ENDO, DIAGN [id number] 12/18/18 EXCISION OF STOMACH, PYLORUS, ENDO, DIAGN [id number] 12/18/18 Internal Medicine Assmt/Plan - Assessment Assessment: ASSESSMENT AND PLAN: 1. Abdominal pain. 2. Recent UTI, colitis, leukocytosis, anemia, hyponatremia, diarrhea. - Plan Plan: PLAN: We will provide the patient with IV hydration, IV antibiotic. We will place the patient on GI. CT showed findings Colitis. Continue with current care. We will follow the patient closely. steroid added Nutritional Asmnt/Malnutr-PDOC - Dietary Evaluation Malnutrition Findings (Please click <Entered> for more info): Nutritional Asmnt/Malnutrition Start: 12/22/18 13: 05 Text: Status: Complete Freq: Protocol: Document 12/22/18 13:05 TITUS (Rec: 12/22/18 13:20 MMLILIANA NIETO- FNS1) Nutritional Asmnt/Malnutrition Patient General Information Nutritional Screening Moderate Risk Diagnosis Abdominal pain Pertinent Medical Hx/Surgical Hx UTI, colitis Subjective Information Patient in bed at time of visit with family at bedside. TOelrating current diet order as ordered without difficulty. Current Diet Order/ Nutrition Support Soft/bland Patient / S.O Not Indicated Pertinent Medications culturelle, imodium, solu- medrol, flagyl, zofran, protonix Pertinent Labs (12/21) K 3.4, Albumin 3.1 Nutritional Hx/Data Height 1.63 m Height (Calculated Centimeters) 162.6 Current Weight (lbs) 51.256 kg Weight (Calculated Kilograms) 51.3 Weight (Calculated Grams) 50572.9 [place] Body Weight 120 % [place] Body Weight 94 Body Mass Index (BMI) 19.3 Recent Weight Change No Weight Status Approriate GI Symptoms GI Symptoms Diarrhea Last BM 12/21 x2 Difficult in: None Food Allergies No Cultural/Ethnic/Cheondoism Belief none indicated Usual diet at home unknown Skin Integrity/Comment: Toi 22, intact Current %PO Good (75-100%) Estimated Nutritional Goals BEE in Kcals: Using Current wt Calories/Kcals/Kg using CBW 51.3 kg 30-35 kcal/ kg Kcals Calculated ~1961-8312 kcal/day Protein: Using Current wt Protein g/k.1-1.3 gm/kg CBW Protein Calculated 55-65 gm/day Fluid: ml ~3071-2478 ml/day Nutritional Problem 1. Problem Problem Altered nutrition related lab values related to Etiology electrolyte imbalance aeb Signs/Symptoms: K 3.4 Intervention/Recommendation Comments 1. Continue soft/bland diet as tolerated by patient. Encourage intake of high potassium foods including fruits and vegatables. 2. Continue imodium as ordered by MD to assist with diarrhea . Expected Outcomes/Goals Expected Outcomes/Goals Oral intake >75% of meals, weight stable or gain toward IBW, nutrition related labs WNL, skin intact F/U in 3-5 days as MR 3-7
[2018-12-23] MEDS: D5-0.9%NS 1,000 ML IV SCH (13:16)
[2018-12-23] MEDS: Levofloxacin 500mg/100mL 500 MG/100 ML BAG IV SCH (22:20)
[2018-12-24] MEDS: metroNIDAZOLE 500mg/NS 100mL 500 MG/100 ML BAG IV SCH ×3 (05:05→21:03)
[2018-12-24] MEDS: D5-0.9%NS 1,000 ML IV SCH (05:06)
[2018-12-24 06:38] LABS: HEMATOCRIT 33.6 % (41.0-60); HEMOGLOBIN 11.1 gm/dL (12-16); MEAN CELL VOLUME 90.5 fl (81-100); MEAN CORPUSCULAR HEMOGLOBIN 29.8 pg (27.0-31.0); MEAN PLATELET VOLUME 6.6 fl; PLATELET COUNT 526 Th/cmm (150-400); RED BLOOD COUNT 3.71 Mil/cmm (3.80-5.10); RED CELL DISTRIBUTION WIDTH 12.4 % (11.5-20.0)
[2018-12-24 06:51] LABS: WHITE BLOOD COUNT 16.3 Th/cmm (4.8-10.8)
[2018-12-24 06:59] LABS: ALB/GLOB RATIO 1.3 (1.0-1.8); ALKALINE PHOSPHATASE 72 U/L (34-104); ANION GAP 10.1 (7.0-16.0); BILIRUBIN,TOTAL 0.2 mg/dL (0.3-1.0); BUN - UREA NITROGEN 14 mg/dL (7-25); CARBON DIOXIDE 29.4 mEq/L (21.0-31.0); CHLORIDE 104 mEq/L (98-107); CREATININE - SERUM 0.6 mg/dL (0.6-1.2); GFR AFRICAN-AMERICAN > 60.0 ml/min (>90); GFR NON AFRICAN-AMERICAN > 60.0 ml/min; GLUCOSE 103 mg/dL (70-105); POTASSIUM SERUM 3.5 mEq/L (3.5-5.1); SGOT 28 U/L (13-39); SGPT/ALT 30 U/L (7-52); SODIUM SERUM 140 mEq/L (136-145); TOTAL PROTEIN,SERUM 5.4 gm/dL (6.0-8.3)
[2018-12-24] MEDS: Enoxaparin 30 mg/0.3 mL 0.3mL Syr SUBQ SCH (08:13)
[2018-12-24] MEDS: Pantoprazole 40 mg EC Tab PO SCH ×2 (08:13→16:19)
[2018-12-24 10:05] LABS: BAND NEUTROPHILE 4 % (0-10); BASOPHIL 0 % (0-3); EOSINOPHIL 1 % (0-5); LYMPHOCYTE 18 % (20-50); MONOCYTE 8 % (2-10); NEUTROPHILS 69 % (40-80); PLATELET ESTIMATE INCREASED PLATELETS (NORMAL)
--- NOTE | 2018-12-24 12:21 | GI Progress Note ---
Subjective - Review of Systems Subjective: DENIES ABD PAIN OR GI BLEEDING LILA LUNCH SOME DIARRHEA Objective - Results Result Diagrams: 12/24/18 06:00 12/24/18 06:00 Recent Labs: Laboratory Last Values WBC 16.3 Th/cmm (4.8-10.8) H 12/24/18 06:00 RBC 3.71 Mil/cmm (3.80-5.10) L 12/24/18 06:00 Hgb 11.1 gm/dL (12-16) L 12/24/18 06:00 Hct 33.6 % (41.0-60) L 12/24/18 06:00 MCV 90.5 fl (81-100) 12/24/18 06:00 MCH 29.8 pg (27.0-31.0) 12/24/18 06:00 MCHC Differential 33.0 pg (28.0-36.0) 12/24/18 06:00 RDW 12.4 % (11.5-20.0) 12/24/18 06:00 Plt Count 526 Th/cmm (150-400) H 12/24/18 06:00 MPV 6.6 fl 12/24/18 06:00 Add Manual Diff YES 12/24/18 06:00 Neutrophils % INSURANCE CLAIMS ANALYST 12/24/18 06:00 Band Neutrophils % 4 % (0-10) 12/24/18 06:00 Lymphocytes % INSURANCE CLAIMS ANALYST 12/24/18 06:00 Monocytes % INSURANCE CLAIMS ANALYST 12/24/18 06:00 Eosinophils % INSURANCE CLAIMS ANALYST 12/24/18 06:00 Basophils % INSURANCE CLAIMS ANALYST 12/24/18 06:00 Neutrophils (Manual) 69 % (40-80) 12/24/18 06:00 Lymphocytes 18 % (20-50) L 12/24/18 06:00 Monocytes 8 % (2-10) 12/24/18 06:00 Eosinophils 1 % (0-5) 12/24/18 06:00 Basophils 0 % (0-3) 12/24/18 06:00 Platelet Estimate INCREASED PLATELETS (NORMAL) 12/24/18 06:00 PT 10.8 SECONDS (9.5-11.5) 12/20/18 05:30 INR 1.04 (0.5-1.4) 12/20/18 05:30 Sodium 140 mEq/L (136-145) 12/24/18 06:00 Potassium 3.5 mEq/L (3.5-5.1) 12/24/18 06:00 Chloride 104 mEq/L (98-107) 12/24/18 06:00 Carbon Dioxide 29.4 mEq/L (21.0-31.0) 12/24/18 06:00 Anion Gap 10.1 (7.0-16.0) 12/24/18 06:00 BUN 14 mg/dL (7-25) 12/24/18 06:00 Creatinine 0.6 mg/dL (0.6-1.2) 12/24/18 06:00 Est GFR ( Amer) > 60.0 ml/min (>90) 12/24/18 06:00 Est GFR (Non-Af Amer) > 60.0 ml/min 12/24/18 06:00 BUN/Creatinine Ratio 23.3 12/24/18 06:00 Glucose 103 mg/dL (70-105) 12/24/18 06:00 Calcium 8.0 mg/dL (8.6-10.3) L 12/24/18 06:00 Magnesium 2.2 mg/dL (1.9-2.7) 12/20/18 05:30 Total Bilirubin 0.2 mg/dL (0.3-1.0) L 12/24/18 06:00 AST 28 U/L (13-39) 12/24/18 06:00 ALT 30 U/L (7-52) 12/24/18 06:00 Alkaline Phosphatase 72 U/L (34-104) 12/24/18 06:00 Creatine Kinase 22 U/L (30-223) L 12/18/18 16:28 Troponin I < 0.01 ng/mL (0.01-0.05) L 12/18/18 16:28 C-Reactive Protein 24.2 mg/dL (0.0-0.9) H 12/19/18 16:28 B-Natriuretic Peptide 7.3 pg/mL (5.0-100.0) 12/18/18 16:28 Total Protein 5.4 gm/dL (6.0-8.3) L 12/24/18 06:00 Albumin 3.0 gm/dL (3.7-5.3) L 12/24/18 06:00 Globulin 2.4 gm/dL 12/24/18 06:00 Albumin/Globulin Ratio 1.3 (1.0-1.8) 12/24/18 06:00 Triglycerides 82 mg/dL (<150) 12/18/18 16:28 Cholesterol 101 mg/dL (<200) 12/18/18 16:28 LDL Cholesterol Direct 53 mg/dL (75-193) L 12/18/18 16:28 HDL Cholesterol 38 mg/dL (23-92) 12/18/18 16:28 Amylase 39 U/L (29-103) 12/18/18 16:28 Lipase 11 U/L (11-82) 12/18/18 16:28 Serum , Qual NEGATIVE (NEGATIVE) 12/18/18 16:28 Urine Source CLEAN C 12/18/18 16:29 Urine Color YELLOW 12/18/18 16:29 Urine Clarity HAZY (CLEAR) 12/18/18 16:29 Urine pH 6.5 (4.6 - 8.0) 12/18/18 16:29 Ur Specific [place] 1.010 (1.005-1.030) 12/18/18 16:29 Urine Protein NEGATIVE mg/dL (NEGATIVE) 12/18/18 16:29 Urine Glucose (UA) NEGATIVE mg/dL (NEGATIVE) 12/18/18 16:29 Urine Ketones NEGATIVE mg/dL (NEGATIVE) 12/18/18 16:29 Urine Blood MODERATE (NEGATIVE) H 12/18/18 16:29 Urine Nitrate NEGATIVE (NEGATIVE) 12/18/18 16:29 Urine Bilirubin NEGATIVE (NEGATIVE) 12/18/18 16:29 Urine Urobilinogen 0.2 E.U./dL (0.2 - 1.0) 12/18/18 16:29 Ur Leukocyte Esterase TRACE (NEGATIVE) H 12/18/18 16:29 Urine RBC 2-5 /hpf (0-5) 12/18/18 16:29 Urine WBC 0-2 /hpf (0-5) 12/18/18 16:29 Ur Epithelial Cells MODERATE /lpf (FEW) 12/18/18 16:29 Urine Bacteria FEW /hpf (NONE SEEN) 12/18/18 16:29 Urine Test NEGATIVE 12/19/18 08:00 Hepatitis A IgM Ab Negative (Negative) 12/21/18 05:10 Hep Bs Antigen Negative (Negative) 12/21/18 05:10 Hep B Core IgM Ab Negative (Negative) 12/21/18 05:10 Hepatitis C Antibody <0.1 s/co ratio (0.0-0.9) 12/21/18 05:10 - Physical Exam Vitals and I&O: Vital Signs Temp 97.5 F 12/24/18 12:13 Pulse 70 12/24/18 12:13 Resp 18 12/24/18 12:13 BP 100/63 12/24/18 12:13 Pulse Ox 99 12/24/18 12:13 Intake & Output 12/23/18 12/24/18 12/24/18 18:59 06:59 18:59 Intake Total 1400 1500 Balance 1400 1500 Weight (lbs) 51.256 kg 51.256 kg Intake: Intake, IV Amount 1100 1300 D5-0.9%Ns 1,000 ml @ 70 1000 1000 mls/hr IV .[id number] [facility] Rx #:[id number] Levofloxacin 500mg/100mL 100 500 mg In 100 ml @ 100 mls/hr IV Q24HR [facility] Rx#: [id number] metroNIDAZOLE 500mg/NS 100 200 100mL 500 mg In 100 ml @ 100 mls/hr IV Q8HR [facility] Rx #:[id number] Oral 300 200 Other: # Voids 3 2 # Bowel Movements 1 2 Stool Characteristics Liquid Liquid Liquid Brown Brown Brown Weight Source Bedscale Bedscale Active Medications: Current Medications Acetaminophen (Tylenol) 650 mg PO Q4H PRN PRN Reason: Pain Or Fever above 101 Stop: 02/16/19 21:41 Last Admin: 12/23/18 22:24 Dose: 650 mg Enoxaparin Sodium (Lovenox) 30 mg SUBQ Q24HR [facility] Stop: 02/21/19 08:14 Last Admin: 12/24/18 08:13 Dose: 30 mg Levofloxacin (Levaquin Pb) 500 mg in 100 mls @ 100 mls/hr IV Q24HR [facility] Stop: 02/16/19 21:59 Last Infusion: 12/23/18 23:26 Dose: Infused Metronidazole (Flagyl) 500 mg in 100 mls @ 100 mls/hr IV Q8HR [facility] Stop: 02/17/19 12:59 Last Admin: 12/24/18 12:18 Dose: 100 mls/hr Dextrose/Sodium Chloride (D5-0.9%Ns) 1,000 mls @ 70 mls/hr IV .[id number] [facility] Stop: 02/18/19 14:59 Last Admin: 12/24/18 05:06 Dose: 70 mls/hr Loperamide HCl (Imodium) 4 mg PO Q4HR PRN PRN Reason: Diarrhea Stop: 02/17/19 12:34 Last Admin: 12/21/18 23:11 Dose: 4 mg Methylprednisolone Sodium Succinate (Solu-Medrol) 60 mg IVP DAILY [facility] Stop: 02/20/19 08:59 Last Admin: 12/24/18 08:13 Dose: 60 mg Miscellaneous (Probiotic Screen) 1 ea MC PRN PRN PRN Reason: PROTOCOL Stop: 02/20/19 14:55 Morphine Sulfate (Morphine) 2 mg IVP Q4H PRN PRN Reason: Abdominal Pain Stop: 02/16/19 21:41 Last Admin: 12/19/18 01:13 Dose: 2 mg Ondansetron HCl (Zofran) 4 mg IV Q8H PRN PRN Reason: Nausea / Vomiting Stop: 02/16/19 21:41 Pantoprazole Sodium (Protonix) 40 mg PO BID [facility] Stop: 02/17/19 08:59 Last Admin: 12/24/18 08:13 Dose: 40 mg General: Alert, Oriented x3 Neck: Supple Cardiovascular: Regular rate Abdomen: Soft, Tender, no Hepatomegaly, no Splenomegaly, no Distended, no Rebound, no Mass - Procedures Procedures: Procedures Procedure Code Date EXCISION OF ASCENDING COLON, ENDO, DIAGN [id number] 12/18/18 EXCISION OF DESCENDING COLON, ENDO, DIAGN [id number] 12/18/18 EXCISION OF DUODENUM, ENDO, DIAGN [id number] 12/18/18 EXCISION OF ILEUM, ENDO, DIAGN [id number] 12/18/18 EXCISION OF RECTUM, ENDO, DIAGN [id number] 12/18/18 EXCISION OF STOMACH, PYLORUS, ENDO, DIAGN [id number] 12/18/18 Assessment/Plan - Problem List Patient Problems: All Active Problems ABDOMINAL PAIN (Acute) Abdominal pain (Acute) R10.9 Flu-like symptoms (Acute) R68.89 - Assessment Assessment: 38 YO FEMALE WITH COLITIS SUSPECT INFLAMMATORY BOWEL DISEASE EGD SHOWED GASTRITIS CT SHOWED COLITIS AND GALLSTONES THE GALLSTONES DO NOT SEEM SYMPTOMATIC AND THE LFTS ARE NORMAL STOOL TEST NEG THUS FAR (CDIFF NEG) 1.CONT LEVAQUIN AND FLAGYL 2.CONT SOLUMEDROL 3.CONT SUPP CARE 4.AWAIT BX 5.WILL NEED OUTPATIENT MANAGEMENT
--- NOTE | 2018-12-24 20:37 | Discharge Summary ---
DATE OF DISCHARGE: 12/24/2018 CHIEF COMPLAINT: Abdominal pain. FINAL DIAGNOSES: Abdominal pain, possible secondary colitis, possible inflammatory bowel disease, gastritis, leukocytosis, anemia, diarrhea. HISTORY: This is [id number] female with significant past medical history, recently diagnosed with UTI, admitted secondary to diffuse abdominal pain. The patient had CT, which showed colitis. PHYSICAL EXAMINATION: VITAL SIGNS: Blood pressure 135/77, respirations 18, pulse 67, temperature 97.. GENERAL: A middle-aged female, at bedside. NECK: Supple. No mass. LUNGS: Equal breath sounds, otherwise clear to auscultation. HEART: Regular rate and rhythm without murmur. ABDOMEN: Soft, globular. EXTREMITIES: Positive excoriation. NEUROLOGIC: Limited. HOSPITAL COURSE: The patient was admitted to medical floor, continue IV hydration, given IV Levaquin as well as Flagyl. The patient was seen by Dr. Gale for GI, had a colonoscopy, biopsy was done; however, waiting for results. The patient's pain since has improved. CONDITION ON DISCHARGE: Fair. DISCHARGE INSTRUCTIONS: Follow up with Dr. Gale's group as well as from ____. The patient to return to ER if her condition worsens. JOB# [id number]
[2018-12-24] MEDS: Levofloxacin 500mg/100mL 500 MG/100 ML BAG IV SCH (22:20)
--- NOTE | 2018-12-25 01:55 | Pathology Report ---
[id number] Collection Date: 12/20/2018 Surgeon: Dr. Bandar Gale Specimen Description: 1. Terminal ileum biopsy. 2. Right colon biopsy. 3. Left colon biopsy. 4. Rectal biopsy. 5. Duodenal biopsy. 6. Gastric biopsy. Gross Description: Part I: Received in formalin are three moore soft tissue fragments ranging from 0.1 to 0.2 cm in greatest dimension. Totally submitted in one cassette labeled A. Gross Description: Part II: Received in formalin are two moore soft tissue fragments ranging from 0.1 to 0.2 cm in greatest dimension. Totally submitted in one cassette labeled B. Gross Description: Part III: Received in formalin are four moore soft tissue fragments ranging from 0.1 to 0.2 cm in greatest dimension. Totally submitted in one cassette labeled C. Gross Description: Part IV: Received in formalin are four moore soft tissue fragments ranging from 0.1 to 0.2 cm in greatest dimension. Totally submitted in one cassette labeled D. Gross Description: Part V: Received in formalin are two moore soft tissue fragments ranging from 0.1 to 0.2 cm in greatest dimension. Totally submitted in one cassette labeled E. Gross Description: Part : Received in formalin is a single moore soft tissue fragment measuring 0.2 cm in greatest dimension. Totally submitted in one cassette labeled F. Microscopic Description: Part I: The histologic sections show intestinal mucosa consistent with terminal ileum, with areas of chronic inflammation appreciated consisting of increased numbers of lymphocytes and plasma cells with several small lymphoid aggregates identified. These aggregates are comprised of small mature appearing lymphocytes. There is no evidence for ulceration. Diagnosis: Part I: Mild chronic inflammation consistent with terminal ileitis (terminal ileum biopsy). Microscopic Description: Part II: The histologic sections show colon mucosa with moderate chronic inflammation present consisting of increased numbers of lymphocytes and plasma cells. There is focal superficial mucosal ulceration with increased numbers of neutrophils and eosinophils. The colon glands also show increased numbers of intraepithelial inflammatory cells (cryptitis) and architectural distortion/twisting consistent with a chronic inflammatory change. Diagnosis: Part II: Chronic active colitis with (right colon biopsy). Microscopic Description: Part III: The histologic sections show colon mucosa with [id number] chronic inflammation present consisting of increased numbers of lymphocytes and plasma cells. There is focal superficial mucosal ulceration associated with increased numbers of acute inflammatory cells comprised of neutrophils and eosinophils. The colon glands show focal architectural distortion and twisting with intraepithelial neutrophils seen in many glands, consistent with chronic active colitis. Diagnosis: Part III: Chronic active colitis (left colon biopsy). Microscopic Description: Part IV: The histologic sections show colorectal mucosa with increased numbers of chronic inflammatory cells present consisting of lymphocytes and plasma cells, with neutrophils also seen extending into the glands consistent with cryptitis. The glandular architecture is also distorted with irregular branching and twisting. Diagnosis: Part IV: Chronic active colitis/proctitis (rectal biopsy). Microscopic Description: Part V: The histologic sections show duodenal mucosa with intact intestinal villi, showing no evidence for villous abnormality. Diagnosis: Part V: No evidence for celiac disease/sprue (duodenal biopsy). Microscopic Description: Part : The histologic sections show gastric mucosa with mild chronic inflammation present consisting of scattered lymphocytes and plasma cells. The Giemsa stain shows no evidence for Helicobacter pylori. Diagnosis: Part : 1. Mild chronic gastritis, gastric biopsy. 2. The Giemsa stain is negative for Helicobacter pylori. Comment: The inflammatory changes seen in the right colon, left colon and rectum are compatible with chronic inflammatory bowel disease. The differential diagnosis is between Crohn's disease and ulcerative colitis. The possibility of infectious colitis can be excluded by following up with the final results of microbiological culture, which have all been negative thusfar. These findings are discussed with Dr. Aylin Deutsch on 12/24/2018. [facility]# [id number] SELINA
[2018-12-25] MEDS: metroNIDAZOLE 500mg/NS 100mL 500 MG/100 ML BAG IV SCH (04:59)
[2018-12-25] MEDS: Pantoprazole 40 mg EC Tab PO SCH (09:33)
--- NOTE | 2018-12-25 13:36 | GI Progress Note ---
Subjective - Review of Systems Subjective: DENIES ABD PAIN OR GI BLEEDING LILA LUNCH SOME DIARRHEA Objective - Results Result Diagrams: 12/24/18 06:00 12/24/18 06:00 Recent Labs: Laboratory Last Values WBC 16.3 Th/cmm (4.8-10.8) H 12/24/18 06:00 RBC 3.71 Mil/cmm (3.80-5.10) L 12/24/18 06:00 Hgb 11.1 gm/dL (12-16) L 12/24/18 06:00 Hct 33.6 % (41.0-60) L 12/24/18 06:00 MCV 90.5 fl (81-100) 12/24/18 06:00 MCH 29.8 pg (27.0-31.0) 12/24/18 06:00 MCHC Differential 33.0 pg (28.0-36.0) 12/24/18 06:00 RDW 12.4 % (11.5-20.0) 12/24/18 06:00 Plt Count 526 Th/cmm (150-400) H 12/24/18 06:00 MPV 6.6 fl 12/24/18 06:00 Add Manual Diff YES 12/24/18 06:00 Neutrophils % DIRECTOR ALUMNI RELATIONS 12/24/18 06:00 Band Neutrophils % 4 % (0-10) 12/24/18 06:00 Lymphocytes % DIRECTOR ALUMNI RELATIONS 12/24/18 06:00 Monocytes % DIRECTOR ALUMNI RELATIONS 12/24/18 06:00 Eosinophils % DIRECTOR ALUMNI RELATIONS 12/24/18 06:00 Basophils % DIRECTOR ALUMNI RELATIONS 12/24/18 06:00 Neutrophils (Manual) 69 % (40-80) 12/24/18 06:00 Lymphocytes 18 % (20-50) L 12/24/18 06:00 Monocytes 8 % (2-10) 12/24/18 06:00 Eosinophils 1 % (0-5) 12/24/18 06:00 Basophils 0 % (0-3) 12/24/18 06:00 Platelet Estimate INCREASED PLATELETS (NORMAL) 12/24/18 06:00 PT 10.8 SECONDS (9.5-11.5) 12/20/18 05:30 INR 1.04 (0.5-1.4) 12/20/18 05:30 Sodium 140 mEq/L (136-145) 12/24/18 06:00 Potassium 3.5 mEq/L (3.5-5.1) 12/24/18 06:00 Chloride 104 mEq/L (98-107) 12/24/18 06:00 Carbon Dioxide 29.4 mEq/L (21.0-31.0) 12/24/18 06:00 Anion Gap 10.1 (7.0-16.0) 12/24/18 06:00 BUN 14 mg/dL (7-25) 12/24/18 06:00 Creatinine 0.6 mg/dL (0.6-1.2) 12/24/18 06:00 Est GFR ( Amer) > 60.0 ml/min (>90) 12/24/18 06:00 Est GFR (Non-Af Amer) > 60.0 ml/min 12/24/18 06:00 BUN/Creatinine Ratio 23.3 12/24/18 06:00 Glucose 103 mg/dL (70-105) 12/24/18 06:00 Calcium 8.0 mg/dL (8.6-10.3) L 12/24/18 06:00 Magnesium 2.2 mg/dL (1.9-2.7) 12/20/18 05:30 Total Bilirubin 0.2 mg/dL (0.3-1.0) L 12/24/18 06:00 AST 28 U/L (13-39) 12/24/18 06:00 ALT 30 U/L (7-52) 12/24/18 06:00 Alkaline Phosphatase 72 U/L (34-104) 12/24/18 06:00 Creatine Kinase 22 U/L (30-223) L 12/18/18 16:28 Troponin I < 0.01 ng/mL (0.01-0.05) L 12/18/18 16:28 C-Reactive Protein 24.2 mg/dL (0.0-0.9) H 12/19/18 16:28 B-Natriuretic Peptide 7.3 pg/mL (5.0-100.0) 12/18/18 16:28 Total Protein 5.4 gm/dL (6.0-8.3) L 12/24/18 06:00 Albumin 3.0 gm/dL (3.7-5.3) L 12/24/18 06:00 Globulin 2.4 gm/dL 12/24/18 06:00 Albumin/Globulin Ratio 1.3 (1.0-1.8) 12/24/18 06:00 Triglycerides 82 mg/dL (<150) 12/18/18 16:28 Cholesterol 101 mg/dL (<200) 12/18/18 16:28 LDL Cholesterol Direct 53 mg/dL (75-193) L 12/18/18 16:28 HDL Cholesterol 38 mg/dL (23-92) 12/18/18 16:28 Amylase 39 U/L (29-103) 12/18/18 16:28 Lipase 11 U/L (11-82) 12/18/18 16:28 Serum , Qual NEGATIVE (NEGATIVE) 12/18/18 16:28 Urine Source CLEAN C 12/18/18 16:29 Urine Color YELLOW 12/18/18 16:29 Urine Clarity HAZY (CLEAR) 12/18/18 16:29 Urine pH 6.5 (4.6 - 8.0) 12/18/18 16:29 Ur Specific [place] 1.010 (1.005-1.030) 12/18/18 16:29 Urine Protein NEGATIVE mg/dL (NEGATIVE) 12/18/18 16:29 Urine Glucose (UA) NEGATIVE mg/dL (NEGATIVE) 12/18/18 16:29 Urine Ketones NEGATIVE mg/dL (NEGATIVE) 12/18/18 16:29 Urine Blood MODERATE (NEGATIVE) H 12/18/18 16:29 Urine Nitrate NEGATIVE (NEGATIVE) 12/18/18 16:29 Urine Bilirubin NEGATIVE (NEGATIVE) 12/18/18 16:29 Urine Urobilinogen 0.2 E.U./dL (0.2 - 1.0) 12/18/18 16:29 Ur Leukocyte Esterase TRACE (NEGATIVE) H 12/18/18 16:29 Urine RBC 2-5 /hpf (0-5) 12/18/18 16:29 Urine WBC 0-2 /hpf (0-5) 12/18/18 16:29 Ur Epithelial Cells MODERATE /lpf (FEW) 12/18/18 16:29 Urine Bacteria FEW /hpf (NONE SEEN) 12/18/18 16:29 Urine Test NEGATIVE 12/19/18 08:00 Helicobacter pylori Ab NEGATIVE (NEGATIVE) 12/20/18 14:50 Hepatitis A IgM Ab Negative (Negative) 12/21/18 05:10 Hep Bs Antigen Negative (Negative) 12/21/18 05:10 Hep B Core IgM Ab Negative (Negative) 12/21/18 05:10 Hepatitis C Antibody <0.1 s/co ratio (0.0-0.9) 12/21/18 05:10 TB (QFT) Gold In Tube NEGATIVE 12/20/18 17:32 TB Test (QFT) Mitogen >10 12/20/18 17:32 TB Test TB - Nil 0.08 12/20/18 17:32 - Physical Exam Vitals and I&O: Vital Signs Temp 98.1 F 12/25/18 11:39 Pulse 87 12/25/18 11:39 Resp 18 12/25/18 11:39 BP 117/80 12/25/18 11:39 Pulse Ox 98 12/25/18 11:39 Intake & Output 12/24/18 12/25/18 12/25/18 18:59 06:59 18:59 Intake Total 100 500 Balance 100 500 Weight (lbs) 51.256 kg Intake: Intake, IV Amount 100 300 Levofloxacin 500mg/100mL 100 500 mg In 100 ml @ 100 mls/hr IV Q24HR [facility] Rx#: [id number] metroNIDAZOLE 500mg/NS 100 200 100mL 500 mg In 100 ml @ 100 mls/hr IV Q8HR [facility] Rx #:[id number] Oral 200 Other: # Voids 2 Stool Characteristics Liquid Liquid Brown Brown Weight Source Patient stated Active Medications: Current Medications Acetaminophen (Tylenol) 650 mg PO Q4H PRN PRN Reason: Pain Or Fever above 101 Stop: 02/16/19 21:41 Last Admin: 12/25/18 05:00 Dose: 650 mg Levofloxacin (Levaquin Pb) 500 mg in 100 mls @ 100 mls/hr IV Q24HR [facility] Stop: 02/16/19 21:59 Last Infusion: 12/24/18 23:28 Dose: Infused Metronidazole (Flagyl) 500 mg in 100 mls @ 100 mls/hr IV Q8HR [facility] Stop: 02/17/19 12:59 Last Infusion: 12/25/18 06:12 Dose: Infused Loperamide HCl (Imodium) 4 mg PO Q4HR PRN PRN Reason: Diarrhea Stop: 02/17/19 12:34 Last Admin: 12/21/18 23:11 Dose: 4 mg Methylprednisolone Sodium Succinate (Solu-Medrol) 60 mg IVP DAILY [facility] Stop: 02/20/19 08:59 Last Admin: 12/25/18 09:32 Dose: 60 mg Miscellaneous (Probiotic Screen) 1 ea MC PRN PRN PRN Reason: PROTOCOL Stop: 02/20/19 14:55 Morphine Sulfate (Morphine) 2 mg IVP Q4H PRN PRN Reason: Abdominal Pain Stop: 02/16/19 21:41 Last Admin: 12/19/18 01:13 Dose: 2 mg Ondansetron HCl (Zofran) 4 mg IV Q8H PRN PRN Reason: Nausea / Vomiting Stop: 02/16/19 21:41 Pantoprazole Sodium (Protonix) 40 mg PO BID [facility] Stop: 02/17/19 08:59 Last Admin: 12/25/18 09:33 Dose: 40 mg General: Alert, Oriented x3 Neck: Supple Cardiovascular: Regular rate Abdomen: Soft, Tender, no Hepatomegaly, no Splenomegaly, no Distended, no Rebound, no Mass - Procedures Procedures: Procedures Procedure Code Date EXCISION OF ASCENDING COLON, ENDO, DIAGN [id number] 12/18/18 EXCISION OF DESCENDING COLON, ENDO, DIAGN [id number] 12/18/18 EXCISION OF DUODENUM, ENDO, DIAGN [id number] 12/18/18 EXCISION OF ILEUM, ENDO, DIAGN [id number] 12/18/18 EXCISION OF RECTUM, ENDO, DIAGN [id number] 12/18/18 EXCISION OF STOMACH, PYLORUS, ENDO, DIAGN [id number] 12/18/18 Assessment/Plan - Problem List Patient Problems: All Active Problems ABDOMINAL PAIN (Acute) Abdominal pain (Acute) R10.9 Flu-like symptoms (Acute) R68.89 - Assessment Assessment: 38 YO FEMALE WITH COLITIS SUSPECT INFLAMMATORY BOWEL DISEASE BY COLONOSCOPY AND BX EGD SHOWED GASTRITIS CT SHOWED COLITIS AND GALLSTONES THE GALLSTONES DO NOT SEEM SYMPTOMATIC AND THE LFTS ARE NORMAL STOOL TEST NEG THUS FAR (CDIFF NEG) 1.CONT LEVAQUIN AND FLAGYL 2.CONT SOLUMEDROL 3.CONT SUPP CARE 4.WILL NEED SULFASALAZINE 5.WILL NEED OUTPATIENT GI MANAGEMENT
--- NOTE | 2018-12-25 20:52 | Discharge Summary ---
DATE OF DISCHARGE: 12/25/2018 CHIEF COMPLAINT: Abdominal pain. FINAL DIAGNOSES: Colitis secondary to inflammatory bowel disease, gastritis, leukocytosis, anemia, diarrhea. BRIEF HISTORY: This is a 38-year-old female without significant past medical history except for recent UTI, admitted secondary to diffuse abdominal pain. PHYSICAL EXAMINATION: VITAL SIGNS: Blood pressure ____, respirations 18, pulse 87, temperature 98.3. GENERAL: Middle-aged female, in no distress. NECK: Supple. No mass. LUNGS: Equal breath sounds. Clear to auscultation. HEART: Regular rate and rhythm without appreciable murmur. ABDOMEN: Soft, nontender. EXTREMITIES: No clubbing, cyanosis, or edema. HOSPITAL COURSE: The patient had an endoscopy, which showed inflammatory bowel disease, unclear whether it is ulcerative colitis or Crohn's per Dr Simental, the pathologist. Case was discussed with Dr. Deutsch. I agree with starting the patient on sulfasalazine, steroids as well as Flagyl and Levaquin. The patient is cleared for discharge. The patient is to follow up with GI. CONDITION ON DISCHARGE: Fair. DISCHARGE INSTRUCTIONS: The patient is to follow up with GI and to go to the closest ER if her conditions deteriorates. Case was discussed with the patient and her with a technical producer, professor of social work, and 2 nurses. JOB# [id number]
== END 2018-12-25 16:55 | disposition home or self-care (01) | DRG 720 ==
LOC: ER 15:50 → MSI 22:02
PROVIDERS: ADMIT Internal Medicine; ATTEND Internal Medicine
PROC: 0DB98ZX Excision of Duodenum, Via Natural or Artificial Opening Endoscopic, Diagnostic (ICD-10-PCS; principal; 2018-12-20)
PROC: 0DB78ZX Excision of Stomach, Pylorus, Via Natural or Artificial Opening Endoscopic, Diagnostic (ICD-10-PCS; 2018-12-20)
PROC: 0DBK8ZX Excision of Ascending Colon, Via Natural or Artificial Opening Endoscopic, Diagnostic (ICD-10-PCS; 2018-12-20)
PROC: 0DBP8ZX Excision of Rectum, Via Natural or Artificial Opening Endoscopic, Diagnostic (ICD-10-PCS; 2018-12-20)
PROC: 0DBB8ZX Excision of Ileum, Via Natural or Artificial Opening Endoscopic, Diagnostic (ICD-10-PCS; 2018-12-20)
PROC: 0DBM8ZX Excision of Descending Colon, Via Natural or Artificial Opening Endoscopic, Diagnostic (ICD-10-PCS; 2018-12-20)
DX: A41.9 Sepsis, unspecified organism (principal); K63.3 Ulcer of intestine; E44.1 Mild protein-calorie malnutrition; K50.90 Crohn's disease, unspecified, without complications; E87.1 Hypo-osmolality and hyponatremia; N39.0 Urinary tract infection, site not specified; K52.9 Noninfective gastroenteritis and colitis, unspecified; D64.9 Anemia, unspecified; Z68.1 Body mass index [BMI] 19.9 or less, adult; K80.80 Other cholelithiasis without obstruction; E86.0 Dehydration; K29.00 Acute gastritis without bleeding; K62.89 Other specified diseases of anus and rectum
CPT/HCPCS: 36415-UA; 80053-TC; 80061-TC; 80074-90; 81001-TC; 81025-TC; 82150-TC; 82550-TC; 83690-TC; 83735-TC; 83880-TC; 84484-TC; 84703-TC; 85007-TC; 85025-TC; 85610-TC; 86141-TC; 86480-90; 87046-90; 87086-90; 87230-TC; 87338-TC; 90799; 93005; 94760; 96375; C9113; J0696; J1650; J1956; J2405; J2930; J7030; J7042; Z7506; Z7508; Z7610